=== PATIENT | female | born 1965 | race Caucasian/White ===

== ENCOUNTER 2020-01-30 14:58 | Outpatient (REF) | payer BC, SELFPAY ==
--- NOTE | 2020-01-30 15:08 | XR_ITS ---
EXAMINATION: XR CHEST CLINICAL INFORMATION: Pleurodynia COMPARISON: None TECHNIQUE: 2 views of the chest were obtained. FINDINGS: No significant abnormality is noted involving the heart, lungs, mediastinum, bony thorax or soft tissues. IMPRESSION: Unremarkable examination.
== END 2020-01-30 14:59 | disposition home or self-care (01) ==
LOC: HO.HMGCX 14:58
PROVIDERS: PCP Family Medicine; Visit Provider Family Medicine
DX: R07.81 Pleurodynia (principal)
CPT/HCPCS: 71046

== ENCOUNTER 2020-09-19 11:12 | Outpatient (REF) | payer BC, SELFPAY ==
[2020-09-19 14:10] LABS: MANUAL DIFF FLAG NO
[2020-09-19 14:17] LABS: Basophils Percent Auto 0.5 % (0-2); Eosinophils Absolute Auto 0.2 X10*3/uL (0.0-0.4); Eosinophils Percent Auto 3.4 % (0-4); Hematocrit 37.7 % (37-47); Hemoglobin 12.4 g/dl (12.0-16.0); Imm Gran Abs Auto 0.03 X10*3/uL (0.00-0.03); Imm Gran Pct Auto 0.5 % (0.0-0.4); Lymphocytes Absolute Auto 2.5 X10*3/uL (1.2-4.9); Mean Corpuscular HGB Conc 32.9 g/dl (31.0-35.0); Mean Corpuscular Hemoglobin 32.5 pg (27.0-33.0); Mean Platelet Volume 10.8 fL (9.4-12.3); Monocytes Absolute Auto 0.3 X10*3/uL (0.1-1.2); Monocytes Percent Auto 5.1 % (2-11); Neutrophils Absolute Auto 3.4 X10*3/uL (2.0-8.3); Neutrophils Percent Auto 52.5 % (45-73); Platelet Count 218 X10*3/uL (160-400); Red Blood Count 3.81 X10*6/uL (4.20-5.50); Red Cell Distribution Width 12.4 % (11.0-16.0); White Blood Count 6.5 X10*3/uL (4.8-10.8)
[2020-09-19 14:23] LABS: Glucose Urine UA NEG (NEG); Leukocyte Esterase Urine NEG (NEG); Nitrite Urine NEG (NEG); PH 7.5 (5.0-8.0); Specific Gravity - Urine 1.015 (1.005-1.025); Urine Blood NEG (NEG); Urine Ketones NEG (NEG); Urine Protein NEG (NEG-TRACE)
[2020-09-19 14:39] LABS: Appearance Urine CLEAR; Color Urine YELLOW
[2020-09-19 14:56] LABS: Alanine Aminotransferase 15 U/L (0-31); Alkaline Phosphatase 72 U/L (39-117); Anion Gap 9 (12-20); Aspartate Amino Transferase 15 U/L (5-31); Bilirubin Total 0.4 mg/dL (0.0-1.0); Blood Urea Nitrogen 16 mg/dL (9-16); Calcium 9.1 mg/dL (8.4-10.2); Carbon Dioxide 29 mmol/L (22-29); Chloride 108 mmol/L (96-108); Estimated Glomerular Filt Rate > 60; Glucose Random 95 mg/dL (60-115); Potassium 4.2 mmol/L (3.3-5.1); Sodium 142 mmol/L (135-145); Total Protein 6.4 g/dL (6.5-8.0)
[2020-09-19 14:57] LABS: TSH reflex Free T4 2.05 uIU/mL (0.32-4.0)
== END 2020-09-19 11:13 | disposition home or self-care (01) ==
LOC: HO.WFDLDS 11:12
PROVIDERS: PCP Family Medicine; Visit Provider Family Medicine
DX: Z00.00 Encounter for general adult medical examination without abnormal findings (principal); K52.9 Noninfective gastroenteritis and colitis, unspecified; R42 Dizziness and giddiness
CPT/HCPCS: 36415; 80053; 81003; 84443; 85025

== ENCOUNTER → 2020-09-30 13:22 | Outpatient (REF) | payer BC, SELFPAY ==
--- NOTE | 2020-09-30 13:45 | ECG_ITS ---
Hook-up date: 2020-09-30 13:45:00 Duration: 24:57:00 Test Indications: DIZZINESS AND GIDDINESS Medications: [id number] QRS complexes 8 Ventricular ectopics which represent <1 % of total QRS comp. 14 Supraventricular ectopics which represent <1 % of total QRS comp. * Paced QRS complexs which represent % of total QRS comp. VENTRICULAR ECTOPY 8 Isolated 0 Bigeminal Cycles 0 Couplets 0 Runs 0 Beats in Runs * Beats LONGEST at * BPM at :: -- * Beats FASTEST at * BPM at :: -- SUPRAVENTRICULAR ECTOPY 8 Isolated 1 Couplets 1 Runs 4 Beats in Runs 4 Beats LONGEST at 165 BPM at 14:47:16 2020-09-30 4 Beats FASTEST at 165 BPM at 14:47:16 2020-09-30 HEART RATES 52 MIN at 08:56:31 2020-10-01 74 AVG 123 MAX at 13:33:27 2020-10-01 LONGEST RR 1.2160 secs at 08:57:19 2020-10-01 S-T LEVELS Channel 1 - 128 mm at 13:45:00 2020-09-30 - 128 mm at 13:45:00 2020-09-30 Channel 2 - 128 mm at 13:45:00 2020-09-30 - 128 mm at 13:45:00 2020-09-30 Channel 3 - 128 mm at 03:30:41 -- - 128 mm at 03:30:41 Basic rhythm Normal sinus rhythm No long pause or profound bradycardia Rare ectopics No dangerous dysrhythm periods No diary submitted Referred By: Karl Falcon Overread By: KEN LILLY MD
== END ==
LOC: HO.CARD 13:22
PROVIDERS: PCP Family Medicine; Visit Provider Family Medicine
DX: R42 Dizziness and giddiness (principal); R00.0 Tachycardia, unspecified
CPT/HCPCS: 93225; 93226

== ENCOUNTER → 2020-10-28 13:57 | Outpatient (BNVA) | payer BC, SELFPAY | PROVIDERS: PCP Family Medicine; Referring Provider Family Medicine; Visit Provider Internal Medicine Cardiovascular Disease ==

== ENCOUNTER → 2020-11-04 07:52 | Outpatient (REF) | payer BC, SELFPAY ==
--- NOTE | 2020-11-04 07:58 | HM_ITS ---
The patient is a 55-year-old female. REASON FOR TEST: Palpitations. INTERPRETATION: The patient was hooked up to cardiac event monitor from 11/04/2020 to 12/04/2020 for a total period of 30 days. Baseline is of normal size rhythm. There were no arrhythmias noted. There were 2 patient activated events both correlated with sinus rhythm. CONCLUSION: Cardiac event monitor is remarkable. 1. Baseline normal sinus rhythm. 1. No significant arrhythmias. 2. No patient reported symptoms. Ahsan Chun MD NRS/MODL / [id number]
--- NOTE | 2020-11-04 07:58 | CA_ITS ---
Acquisition Time: 2020-11-04 08:10:55 Total Exercise Time: 00:06:00 Test Indications: Chest Pain Medications: BUPROPION CLONAZAPAM FLUOXETINE ONDANSTATRON ZOLPIDIEM Protocol: ANASTASIIA Max HR: 146 BPM 89% of Pred: 163 BPM Max BP: 146/084 mmHG Max Work Load: 7.0 METS Exercise stress test with exercise 6 min of Anastasiia protocol, with mild sob, no chest discomfort, with isolated PACs, with normotensive response to exercise, with nonspecific ST abnormality which is equivocal for ischemia. EKG tracings and report reviewed with Dr Chun. Will order a stress echo for further evaluation. Referred By: Ahsan Chun Overread By: KAYLA OZUNA
[2020-11-04 08:50] LABS: Cholesterol 190 mg/dL; HDL Cholesterol 55 mg/dL; LDL Cholesterol Calculated 107 mg/dl; Triglycerides 143 mg/dL
[2020-11-05 11:47] LABS: CRP High Sensitivity 3.6 mg/L
[2020-11-05 16:11] LABS: Follicle Stimulating Hormone 68.2 mIU/mL; Lutenizing Hormone 33.2 mIU/mL
[2020-11-08 11:31] LABS: Metanephrine, Free <25 pg/mL (<=57); Normetanephrines, Free 129 pg/mL (<=148); Total Metanephrine, Free 129 pg/mL (<=205)
== END ==
LOC: HO.CARD 07:52
PROVIDERS: Family Medicine; Visit Provider Internal Medicine Cardiovascular Disease
DX: R00.2 Palpitations (principal); M79.602 Pain in left arm; R23.2 Flushing; R00.0 Tachycardia, unspecified; R42 Dizziness and giddiness; R61 Generalized hyperhidrosis; I25.10 Atherosclerotic heart disease of native coronary artery without angina pectoris; E78.5 Hyperlipidemia, unspecified; Z82.49 Family history of ischemic heart disease and other diseases of the circulatory system
CPT/HCPCS: 36415; 80061; 82533; 83001; 83002; 83835; 86141; 93017; 93270

== ENCOUNTER → 2020-11-12 10:52 | Outpatient (REF) | payer BC, SELFPAY ==
--- NOTE | 2020-11-12 10:56 | CA_ITS ---
Acquisition Time: 2020-11-12 11:40:44 Total Exercise Time: 00:06:10 Test Indications: ABN ETT Medications: SEE CHART Protocol: ANASTASIIA Max HR: 166 BPM 101% of Pred: 163 BPM Max BP: 132/068 mmHG Max Work Load: 7.2 METS Exercise stress test with exercise 6 min 10 sec of Anastasiia protocol, with mild to moderate shortness of breath, no chest discomfort, with isolated PACs and PVCs, with normotensive response to exercise, with EKG changes meeting criteria for ischemia: horizontal ST depression inferiorly, V3-V6,ST elevation aVR. Echo images obtained by tech at rest and immediately post peak exercise. Definity contrast used. Test reviewed with Dr Menjivar. Referred By: Rafaela Serrato Overread By: RAFAELA SERRATO
== END ==
LOC: HO.CARD 10:52
PROVIDERS: Visit Provider Nurse Practitioner Family
DX: R94.39 Abnormal result of other cardiovascular function study (principal); Z82.49 Family history of ischemic heart disease and other diseases of the circulatory system
CPT/HCPCS: 93350; Q9957

== ENCOUNTER → 2020-12-09 09:24 | Outpatient (REF) | payer BC, SELFPAY ==
--- NOTE | 2020-12-09 09:27 | CA_ITS ---
Transthoracic Echocardiogram Patient (Last, First, Middle): Rosie Romero, Gender: Female Date of : 1965 Age: 55 Procedure Date: 12/09/2020 Procedure Type: Transthoracic Echocardiogram Location: OP Height: 154.94 cm Weight: 90.72 kg BSA: 1.89 m2 Heart Rate: bpm BP: 120 / 70 mmHg Business Applications Developer: CARA Referring MD: Ahsan Chun MD Symptoms: R00.2 - Palpitations Study Quality: Good ECG Rhythm: Sinus Conclusions: - The left ventricular systolic function is normal. The calculated ejection fraction is 61% by biplane method. - No obvious valvular pathology seen on this study. Findings Left Ventricle Normal left ventricular cavity size. There is normal left ventricular wall thickness. The left ventricular systolic function is normal. The calculated ejection fraction is 61% by biplane method. There is no evidence of regional wall motion abnormalities. Diastolic function is normal for age. Right Ventricle Normal right ventricular cavity size and systolic function. Atria Both atria are normal in size. Aortic Valve There is a normal trileaflet aortic valve. There is no aortic valve stenosis. There is no aortic valve regurgitation. Mitral Valve The mitral valve appears normal. There is no mitral valve regurgitation. There is no mitral valve stenosis. Pulmonic Valve The pulmonic valve is likely normal. Tricuspid Valve Normal tricuspid valve structure. There is trace tricuspid valve regurgitation. The pulmonary artery systolic pressure is normal. Great Vessels The aortic annulus, sinuses of valsalva, and asc aorta are normal in size. Venous The inferior vena cava is normal in size and collapses greater than 50% with inspiration. Pericardium/Pleural There is no evidence of pericardial effusion. Prior Study Comparison No prior study available for comparison. Recommendations, Care & Conclusions No obvious valvular pathology seen on this study. Measurements 2D Linear Measurements IVSd: 0.92 0.6-0.9/0.6-1.0 cm LVIDd: 4.90 3.9-5.3/4.2-5.9 cm LVIDd Index: 2.59 2.4-3.2/2.2-3.1 cm/m2 LVIDs: 3.16 2.0-3.6 cm LVPWd: 0.86 0.7-1.1 cm Ao Root: 3.70 2.1-3.5 cm LA Diam: 3.60 2.7-3.8/3.0-4.0 cm LAIDs Index: 1.90 1.5-2.3 cm/m2 LV Mass: 186.67 67-162/88-224 g LV Mass Index: 98.77 43-95/49-115 g/m2 LVOT Diam: 2.00 3.0+(-)1.3 cm 2D Systolic Function EF 4C: 58.50 >55% EF 2C: 63.00 >55% EF BiP: 61.30 >55% Mitral Valve MV Pk E: 0.51 MV PK A: 0.78 MV Decel Time: 221.00 E/A: 0.70 E'Lateral: 5.00 E'Medial: 5.11 E/E' Med: 9.90 E/E' Lat: 10.20 PHT: 65.00 MVA PHT: 3.38 Decel Dougherty: 2.30 Aortic Valve AoV Pk Jarett: 1.38 AoV Mn Jarett: 0.90 AoV VTI: 0.26 AoV Pk Grad: 8.00 Aov Mn Grad: 4.00 MERVIN Cont.VTI: 2.47 LVOT LVOT Pk Jarett: 0.91 LVOT Mn Jarett: 0.61 LVOT VTI: 0.20 LVOT Pk Grad: 3.00 LVOT Mn Grad: 2.00 LVOT Diam: 2.00 LVOT Area: 3.14 Diastolic Function MV Pk E: 0.51 MV Pk A: 0.78 E/A: 0.70 E'Medial: 5.11 E/E' Med: 9.90 E' Laterial: 5.00 E/E' Lat: 10.20 Right Ventricle TAPSE (mm): 1.75 TVS' Jarett: 12.10 Tricuspid Valve TR Pk Jarett: 1.44 TR Pk Grad: 8.00 RA Press: 3.00 RVSP: 11.00 Great Vessels Aorta Ao Root-2D: 3.70 2.0-3.7 cm Ao Asc: 3.20 2.1-3.4 cm Ao Arch: 2.60 Updated in Other Vendor System with Status of Final Aldair Menjivar MD electronically signed on 12/10/2020 8:52:01 AM with status of Final
== END ==
LOC: HO.CARD 09:24
PROVIDERS: Visit Provider Internal Medicine Cardiovascular Disease
DX: R00.2 Palpitations (principal)
CPT/HCPCS: 93306

== ENCOUNTER → 2020-12-24 12:42 | Outpatient (BNVA) | payer BC, SELFPAY | PROVIDERS: PCP Family Medicine; Referring Provider Family Medicine; Visit Provider Internal Medicine Cardiovascular Disease ==

== ENCOUNTER 2021-03-31 08:12 | Outpatient (REF) | payer BC, SELFPAY ==
[2021-03-31 09:16] LABS: Cholesterol 199 mg/dL; HDL Cholesterol 59 mg/dL; LDL Cholesterol Calculated 111 mg/dl; Triglycerides 145 mg/dL
[2021-04-02 13:36] LABS: CRP High Sensitivity 8.2 mg/L
== END 2021-03-31 08:13 | disposition home or self-care (01) ==
LOC: HO.LAB 08:12
PROVIDERS: PCP Family Medicine; Visit Provider Internal Medicine Cardiovascular Disease
DX: R79.82 Elevated C-reactive protein (CRP) (principal); E78.5 Hyperlipidemia, unspecified; Z82.49 Family history of ischemic heart disease and other diseases of the circulatory system
CPT/HCPCS: 36415; 80061; 86141

== ENCOUNTER 2021-05-26 11:31 | Outpatient (REF) | payer BC, SELFPAY ==
--- NOTE | ~2021-05-26 | MM_ITS ---
EXAMINATION: MM SCREENING DIGITAL BREAST TOMOSYNTHESIS, BILATERAL CLINICAL INFORMATION: Screening. Asymptomatic. The lifetime risk of breast cancer based on the Tyrer-Cuzick Model is 5%. COMPARISON: Mammography: 03/04/2016, 02/22/2016, 01/08/2015 TECHNIQUE: Digital breast tomosynthesis is performed in both the craniocaudal and mediolateral oblique views along with computer-aided detection (CAD). Synthesized 2D images are generated from the tomosynthesis. Additional left CC view is provided. FINDINGS: The breasts are heterogeneously dense, which may obscure small masses (ACR BI-RADS breast composition Category c). Breast parenchymal pattern is similar to prior studies. There is no interval mass or architectural abnormality or developing density. The axilla and skin contours are unremarkable. There are some scattered benign calcifications seen in both breasts. The left breast has interval new loosely grouped benign-appearing coarse calcifications mid upper outer quadrant. Patient will be recalled for additional magnification views to fully characterize. MM/MM tomosynthesis screening BI IMPRESSION: 1. Left: New loosely grouped probable benign coarse calcifications mid upper outer quadrant. 2. Right: No mammographic evidence of malignancy. ASSESSMENT: BI-RADS 0: Incomplete - Need Additional Imaging Evaluation RECOMMENDATION: 1. Additional views of the left breast (magnification CC, magnification ML). 2. Radiology department staff will contact the patient for additional imaging. This patient's information was entered into a reminder system with a target due date for their next mammogram.
== END 2021-05-26 11:32 | disposition home or self-care (01) ==
LOC: HO.MAMMO 11:31
PROVIDERS: PCP Family Medicine; Visit Provider Family Medicine
DX: Z12.31 Encounter for screening mammogram for malignant neoplasm of breast (principal)
CPT/HCPCS: 77063; 77067

== ENCOUNTER 2021-06-17 13:19 | Outpatient (REF) | payer BC, SELFPAY ==
--- NOTE | ~2021-06-17 | MM_ITS ---
EXAMINATION: MM DIAGNOSTIC DIGITAL MAMMOGRAPHY, LEFT CLINICAL INFORMATION: Recall from screening for new loosely grouped calcifications left breast upper outer quadrant when compared with the prior mammography from 2016. COMPARISON: Mammography: 05/26/2021, 03/04/2016 TECHNIQUE: Digital mammography is performed in the following views: Magnification CC, magnification ML. FINDINGS: The breasts are heterogeneously dense, which may obscure small masses (ACR BI-RADS breast composition Category c). The additional magnification views confirm loosely grouped coarse calcifications mid upper outer left breast, new from prior mammography 2016. The calcifications are probably benign and will be reassessed again in 6 months to include magnification views. Results are discussed with the patient at time of visit. Patient confirms there are no additional prior mammograms between 2015 and 2021. MM/MM added views LT IMPRESSION: Probable benign calcifications mid upper outer left breast, new from prior mammography 2016. ASSESSMENT: BI-RADS 3: Probably Benign RECOMMENDATION: Diagnostic left mammography in 6 months. This patient's information was entered into a reminder system with a target due date for their next mammogram.
== END 2021-06-17 13:20 | disposition home or self-care (01) ==
LOC: HO.MAMMO 13:19
PROVIDERS: PCP Family Medicine; Visit Provider Family Medicine
DX: R92.1 Mammographic calcification found on diagnostic imaging of breast (principal)
CPT/HCPCS: 77065

== ENCOUNTER 2021-12-30 12:55 | Outpatient (REF) | payer BC, SELFPAY ==
--- NOTE | ~2021-12-30 | MM_ITS ---
EXAMINATION: MM DIAGNOSTIC DIGITAL BREAST TOMOSYNTHESIS, LEFT CLINICAL INFORMATION: Short interval six-month follow-up probable benign calcifications mid upper outer left breast. The lifetime risk of breast cancer based on the Tyrer-Cuzick Model is 5%. COMPARISON: Mammography: 06/17/2021, 05/26/2021 (BI-RADS 0), 03/04/2016, 02/22/2016 TECHNIQUE: Digital breast tomosynthesis is performed in both the craniocaudal and mediolateral oblique views along with computer-aided detection (CAD). Synthesized 2D images are generated from the tomosynthesis. Additional magnification left CC and magnification left ML views are obtained. FINDINGS: The breasts are heterogeneously dense, which may obscure small masses (ACR BI-RADS breast composition Category c). Parenchymal pattern is similar to prior studies and there is no developing density or interval mass or architectural abnormality. Left breast calcifications for follow-up are relatively coarse and similar to prior diagnostic exam, possibly fibroadenomatous change. The calcifications will be reassessed again at time of annual bilateral mammography, due in 6 months. Results are provided to the patient at time of visit by the technologist. MM/MM tomosynthesis diagnostic LT IMPRESSION: -Left breast calcifications similar to prior diagnostic exam, possibly fibroadenomatous change. ASSESSMENT: BI-RADS 3: Probably Benign RECOMMENDATION: Diagnostic left mammography at time of annual bilateral exam, due in 6 months. This patient's information was entered into a reminder system with a target due date for their next mammogram.
== END 2021-12-30 12:56 | disposition home or self-care (01) ==
LOC: HO.MAMMO 12:55
PROVIDERS: PCP Family Medicine; Visit Provider Family Medicine
DX: R92.8 Other abnormal and inconclusive findings on diagnostic imaging of breast (principal)
CPT/HCPCS: 77061; 77065

== ENCOUNTER 2022-04-17 09:46 | Outpatient (REF) | payer BC, SELFPAY ==
--- NOTE | ~2022-04-17 | XR_ITS ---
EXAMINATION: XR HAND, RIGHT CLINICAL INFORMATION: Pain. COMPARISON: Radiographs dated 08/07/2015. TECHNIQUE: PA, lateral, and oblique views of the right hand. FINDINGS: Bony alignment is normal. There is a mild ulnar positive variance. There is mild bony demineralization. There is minimal peripheral osteophyte formation of the interphalangeal joint of the thumb. No abnormal bone erosion is seen. The proximal and distal carpal rows are intact. The soft tissue planes are unremarkable, without swelling, gas or foreign body. XR/XR hand LT 2V IMPRESSION: 1. No fracture or dislocation is seen. 2. There is minimal osteoarthritic change of the interphalangeal joint of the right thumb. EXAMINATION: XR HAND, LEFT CLINICAL INFORMATION: Pain. COMPARISON: None TECHNIQUE: PA, lateral, and oblique views of the left hand. FINDINGS: Bony alignment is normal. There is a mild ulnar positive variance. There is mild bony demineralization. No unusual degenerative change is seen. There is no focal bone erosion. No fracture or dislocation is seen. The soft tissue planes are unremarkable, swelling, gas or foreign body. IMPRESSION: Unremarkable left hand.
--- NOTE | ~2022-04-17 | XR_ITS ---
EXAMINATION: XR HAND, RIGHT CLINICAL INFORMATION: Pain. COMPARISON: Radiographs dated 08/07/2015. TECHNIQUE: PA, lateral, and oblique views of the right hand. FINDINGS: Bony alignment is normal. There is a mild ulnar positive variance. There is mild bony demineralization. There is minimal peripheral osteophyte formation of the interphalangeal joint of the thumb. No abnormal bone erosion is seen. The proximal and distal carpal rows are intact. The soft tissue planes are unremarkable, without swelling, gas or foreign body. XR/XR hand RT 2V IMPRESSION: 1. No fracture or dislocation is seen. 2. There is minimal osteoarthritic change of the interphalangeal joint of the right thumb. EXAMINATION: XR HAND, LEFT CLINICAL INFORMATION: Pain. COMPARISON: None TECHNIQUE: PA, lateral, and oblique views of the left hand. FINDINGS: Bony alignment is normal. There is a mild ulnar positive variance. There is mild bony demineralization. No unusual degenerative change is seen. There is no focal bone erosion. No fracture or dislocation is seen. The soft tissue planes are unremarkable, swelling, gas or foreign body. IMPRESSION: Unremarkable left hand.
[2022-04-17 10:34] LABS: Appearance Urine Clear; Color Urine Yellow; Glucose Urine UA Negative (Negative); Leukocyte Esterase Urine Negative (Negative); Nitrite Urine Negative (Negative); PH 5.5 (5.0-9.0); UMIC TRIGGER UA YES; Urine Blood Small (1+) (Negative); Urine Ketones Negative (Negative); Urine Protein Negative (Neg-Trace)
[2022-04-17 10:44] LABS: Bacteria Urine None Seen (None Seen); Hyaline Casts Urine 0-2 /LPF (0-2); RBC Urine 0-2 /HPF (0-2); WBC Urine 0-5 /HPF (0-5)
[2022-04-17 11:04] LABS: Alanine Aminotransferase 9 U/L (0-31); Albumin Level 4.4 g/dL (3.5-5.0); Alkaline Phosphatase 75 U/L (39-117); Anion Gap 12 (12-20); Aspartate Amino Transferase 13 U/L (5-31); Bilirubin Total 0.5 mg/dL (0.0-1.0); Blood Urea Nitrogen 15 mg/dL (9-16); Calcium 9.7 mg/dL (8.4-10.2); Carbon Dioxide 29 mmol/L (22-29); Chloride 106 mmol/L (96-108); Cholesterol 240 mg/dL; Estimated Glomerular Filt Rate > 60; Glucose Fasting 92 mg/dL (60-99); HDL Cholesterol 74 mg/dL; LDL Cholesterol Calculated 136 mg/dl; Potassium 4.5 mmol/L (3.3-5.1); Sodium 142 mmol/L (135-145); Total Protein 7.1 g/dL (6.5-8.0); Triglycerides 152 mg/dL
[2022-04-17 11:56] LABS: Creatinine Urine 138.95 mg/dL; Microalbum/Creatinine Ratio Ur 4.3 ug/mg cr
[2022-04-17 13:23] LABS: TSH reflex Free T4 2.21 uIU/mL (0.32-4.0)
== END 2022-04-17 09:47 | disposition home or self-care (01) ==
LOC: HO.LAB 09:46
PROVIDERS: PCP Family Medicine; Visit Provider Family Medicine
DX: Z00.00 Encounter for general adult medical examination without abnormal findings (principal); I10 Essential (primary) hypertension; M79.641 Pain in right hand; M79.642 Pain in left hand
CPT/HCPCS: 36415; 73120; 80053; 80061; 81001; 82043; 84443

== ENCOUNTER 2022-07-07 12:56 | Outpatient (REF) | payer BC, SELFPAY ==
--- NOTE | ~2022-07-07 | MM_ITS ---
EXAMINATION: MM DIAGNOSTIC DIGITAL BREAST TOMOSYNTHESIS, BILATERAL CLINICAL INFORMATION: Due for yearly. Also follow-up probable benign calcifications mid upper outer left breast, possibly fibroadenomatous changes. The lifetime risk of breast cancer based on the Tyrer-Cuzick Model is 8%. COMPARISON: Mammography: 12/30/2021, 06/17/2021, 05/26/2021 (BI-RADS 0), 03/04/2016, 02/21/2015 TECHNIQUE: Digital breast tomosynthesis is performed in both the craniocaudal and mediolateral oblique views along with computer-aided detection (CAD). Synthesized 2D images are generated from the tomosynthesis. FINDINGS: The breasts are heterogeneously dense, which may obscure small masses (ACR BI-RADS breast composition Category c). Parenchymal pattern is similar to prior studies and there is no significant mass or developing density, or architectural abnormality. Parenchymal asymmetry mid central left breast on CC view is chronic finding, unchanged from 2015. Right breast shows no skin abnormal calcifications. The bilateral axilla and skin contours are unremarkable. Left breast calcifications for follow-up are benign-appearing, relatively coarse, suspect fibroadenomatous change. They will be reassessed again at next bilateral annual mammography in 12 months. Results are provided to the patient at time of visit by the technologist. MM/MM tomosynthesis diagnostic BI IMPRESSION: -No mammographic evidence of malignancy. -No significant changes probable benign calcifications mid upper outer left breast, suspect fibroadenomatous change. ASSESSMENT: BI-RADS 3: Probably Benign RECOMMENDATION: Diagnostic mammography at time of next annual exam, due in 12 months. This patient's information was entered into a reminder system with a target due date for their next mammogram.
== END 2022-07-07 12:57 | disposition home or self-care (01) ==
LOC: HO.MAMMO 12:56
PROVIDERS: PCP Family Medicine; Visit Provider Family Medicine
DX: R92.8 Other abnormal and inconclusive findings on diagnostic imaging of breast (principal); R92.1 Mammographic calcification found on diagnostic imaging of breast
CPT/HCPCS: 77062; 77066

== ENCOUNTER 2022-08-28 11:41 | Outpatient (REF) | payer BC, SELFPAY ==
[2022-08-28 14:23] LABS: Erythrocyte Sedimentation Rate 16 MM/HR (0-20)
[2022-08-28 14:26] LABS: Anion Gap 8 (12-20); Blood Urea Nitrogen 18 mg/dL (9-16); Calcium 9.4 mg/dL (8.4-10.2); Carbon Dioxide 30 mmol/L (22-29); Chloride 107 mmol/L (96-108); Estimated Glomerular Filt Rate > 60; Glucose Random 80 mg/dL (60-115); Rheumatoid Factor < 13.0 IU/mL (<15.0); Sodium 141 mmol/L (135-145)
[2022-08-31 15:59] LABS: CRP High Sensitivity 4.3 mg/L
[2022-09-03 12:13] LABS: Cyclic Citrullinated Peptide <16 UNITS
[2022-09-04 14:58] LABS: Anti Nuclear Antibody Screen POSITIVE (NEGATIVE)
== END 2022-08-28 11:42 | disposition home or self-care (01) ==
LOC: HO.WFDLDS 11:41
PROVIDERS: Visit Provider Family Medicine
DX: Z00.00 Encounter for general adult medical examination without abnormal findings (principal); M79.671 Pain in right foot; M25.569 Pain in unspecified knee
CPT/HCPCS: 36415; 80048; 84550; 85652; 86038; 86039; 86141; 86200; 86431

== ENCOUNTER 2022-12-31 09:29 | Outpatient (AMB) | payer BC, SELFPAY ==
--- NOTE | 2022-12-31 09:33 | A.OFFPC_ITS ---
Vital Signs 12/31/22 09:35 Height 5 ft 1 in Weight 196 lb 8 oz BMI 37.1 BP 104/66 Blood Pressure Location Lt brachial Position Sitting Respiration 13 Pulse 73 Pulse Source Pulse Oximeter Temp 97.8 F Temp Source Temporal Artery Scan Pulse Oximetry (%) 96 Oxygen Delivery Method Room Air Intake Visit Reasons: lump on collarbone near throat Intake Note: Patient reports finding a lump on the right side of her neck/collarbone area 1 week ago. Patient reports the lump is not painful however the right side of the neck is painful. Patient also states she has rib pain on the right side. Patient reports a nonproductive cough x2 weeks. Supervisor Shipping Required: No Allergies acetaminophen [From PERCOCET] Allergy (Mild, Verified 12/31/22 09:41) NAUSEA & VOMITING oxycodone [OXYCODONE] Allergy (Mild, Verified 12/31/22 09:41) NAUSEA & VOMITING Most paonkillers Allergy (Unknown, Uncoded 09/28/22 13:30) VOmiting OxyContin Allergy (Unknown, Uncoded 09/28/22 13:30) vomit Tobacco use date assessed: 09/28/22 Dental Screening Dental Screen Date: 12/31/22 Did you have a dental visit in the last 12 months?: Yes Did you have a dental problem in the last 6 months where you did not have access to dental care?: No Was dental information given to patient?: Patient has dentist HPI lump on collarbone near throat HPI Details 57 y/o female presents today with compla ints of a lump on her collarbone. Patient reports finding a lump on the right side of her neck/collarbone area 1 week ago. Patient reports the lump is not painful however the right side of the neck is painful. Patient also states she has rib pain on the right side. Patient reports a nonproductive cough x2 weeks. She denies any fevers/chills/sweats. Pt reports rib pain have been from her leaning against a tub. [facility] Medical History Family history of premature coronary artery disease Surgical History History of cholecystectomy History of partial hysterectomy Family History (Updated 12/31/22 @ 09:43 by Kerline Eli) Father No problems noted. Mother No problems noted. Brother CVD (cardiovascular disease) Daughter Grand mal seizure Social History Housing: House Alcohol intake: current Alcohol intake frequency: holidays/special occasions only Patient Tobacco Use Status: Never used Tobacco e-Cigarette/Vaping Use: Never Used service: No Current occupational status: employed Current occupational exposures/hazards: No Cognitive needs: No Hearing needs: No Vision needs: No Questionnaire Thrive Questionnaire Date Thrive assessed: 12/24/20 RICKY-7 AMB Questionnaire RICKY-7 Date RICKY - 7 assessed: 04/14/22 Source: Developed by Drs. Allen Pham, Ny Drake, Mitul Heredia and colleagues, with an educational farheen from [employer]. Review of Systems Const Denies chills, Denies fatigue, Denies fever(s), Denies headache(s) and Denies weakness ENT Denies dizziness and Denies headache(s) Card Denies dyspnea Resp Reports cough, Denies dyspnea and Denies wheezing Musc Details: Rib pain Denies numbness and Denies tingling Neuro Denies dizziness, Denies headache(s), Denies numbness, Denies tingling and D enies weakness Psych Denies anxiety and Denies depression Endo Denies fatigue Aller/Immun Denies wheezing Physical exam (Primary Care) Vital Signs: Last Vital Signs Temp 97.8 F 12/31/22 09:35 Pulse 73 12/31/22 09:35 Resp 13 12/31/22 09:35 BP 104/66 12/31/22 09:35 Pulse Ox 96 12/31/22 09:35 Oxygen Delivery Method Room Air 12/31/22 09:35 BMI result Body Mass Index 37.1 Tobacco/Smoking Status: Tobacco use Status Tobacco use date assessed 09/28/22 12/31/22 09:35 Patient Tobacco Use Status Never used Tobacco 12/31/22 09:35 e-Cigarette/Vaping Use Never Used 12/31/22 09:35 Thrive Assessment: Date of Thrive Assessment Date Thrive assessed 12/24/20 12/31/22 09:35 Const General: well developed; No acute distress Nutritional Appearance: well nourished and obese Orientation/consciousness: patient oriented x3 HENMT Head: Yes normocephalic and Yes atraumatic Eyes General: appearance normal, both eyes and all related structures Pupils: Equal, round and reactive pupils present EOM: EOMs intact bilaterally Resp Effort & Inspection: normal respiratory effort Neuro General: patient oriented x3 and gait normal Cranial nerves: Yes Equal, round and reactive pupils present Psych Affect: normal affect Assessment and Plan Assessment & Plan (1) Neck mass: Code(s): R22.1 - Localized swelling, mass and lump, neck Plan: Mass at base of neck/right SC joint No fevers or sweating I suspect this may be a sternoclavicular joint inflammation and patient has polyarthralgias and is already referred to Rheumatology. Ruling out other causes of mass including tumor though I think this is less likely Check ultrasound neck Check chest x-ray Check CBC Will follow-up after above studies (2) Rib pain: Code(s): R07.81 - Pleurodynia Plan: Rib pain and patient was leaning against a tub Pain is at costochondral margins Possible costochondritis Checking chest x-ray (3) Cough: Code(s): R05.9 - Cough, unspecified Plan: Dry cough. Lungs are clear. Probable incidental cough and unrelated to the above but checking chest x-ray Orders: Orders US soft tiss head and/or neck Today R22.1 - Localized swelling, mass and lump, neck XR chest 2V Today R05.9 - Cough, unspecified, R07.81 - Pleurodynia Complete Blood Count Auto Diff Today R22.1 - Localized swelling, mass and lump, neck Erythrocyte Sedimentation Rate Today R07.81 - Pleurodynia CRP High Sensitivity Today R07.81 - Pleurodynia Coding Level of Care Code Est Pt Level 4 (75138) Diagnoses Neck mass R22.1 Rib pain R07.81 Cough R05.9
[2022-12-31 09:35] VITALS: BP 104/66; PULSE 73; RESP 13; TEMP 36.6; O2SAT 96; BMI 37.1
== END 2022-12-31 10:23 | disposition home or self-care (01) ==
PROVIDERS: PCP Family Medicine; Visit Provider Family Medicine
DX: R22.1 Localized swelling, mass and lump, neck (principal); R07.81 Pleurodynia; R05.9 Cough, unspecified
CPT/HCPCS: 99214

== ENCOUNTER 2022-12-31 10:28 | Outpatient (REF) | payer BC, SELFPAY ==
[2022-12-31 14:17] LABS: MANUAL DIFF FLAG NO
[2022-12-31 14:22] LABS: Basophils Absolute Auto 0.1 X10*3/uL (0.0-0.2); Basophils Percent Auto 0.8 % (0-2); Eosinophils Absolute Auto 0.2 X10*3/uL (0.0-0.4); Eosinophils Percent Auto 2.4 % (0-4); Hematocrit 39.2 % (37.0-47.0); Hemoglobin 12.8 g/dl (12.0-16.0); Imm Gran Abs Auto 0.02 X10*3/uL (0.00-0.03); Imm Gran Pct Auto 0.3 % (0.0-0.4); Lymphocytes Absolute Auto 2.2 X10*3/uL (1.2-4.9); Lymphocytes Percent Auto 35.2 % (20-40); Mean Corpuscular HGB Conc 32.7 g/dl (31.0-35.0); Mean Corpuscular Hemoglobin 33.2 pg (27.0-33.0); Mean Corpuscular Volume 101.6 fL (80.0-98.0); Mean Platelet Volume 11.2 fL (9.4-12.3); Monocytes Absolute Auto 0.4 X10*3/uL (0.1-1.2); Monocytes Percent Auto 6.2 % (2-11); Neutrophils Absolute Auto 3.4 x10*3/uL (2.0-8.3); Neutrophils Percent Auto 55.1 % (45-73); Platelet Count 255 X10*3/uL (160-400); Red Blood Count 3.86 X10*6/uL (4.20-5.50); Red Cell Distribution Width 12.3 % (11.0-16.0); White Blood Count 6.1 X10*3/uL (4.8-10.8)
[2022-12-31 15:06] LABS: Erythrocyte Sedimentation Rate 12 MM/HR (0-20)
== END 2022-12-31 10:29 | disposition home or self-care (01) ==
LOC: HO.WFDLDS 10:28
PROVIDERS: Visit Provider Family Medicine
DX: R07.81 Pleurodynia (principal); R22.1 Localized swelling, mass and lump, neck
CPT/HCPCS: 36415; 85025; 85652; 86141

== ENCOUNTER 2023-01-01 12:56 | Outpatient (REF) | payer BC, SELFPAY ==
--- NOTE | ~2023-01-01 | XR_ITS ---
EXAMINATION: XR CHEST CLINICAL INFORMATION: Pleurodynia COMPARISON: Previous chest x-ray most recent January 2020 TECHNIQUE: 2 views of the chest were obtained. FINDINGS: The cardiac and mediastinal contours are stable. The lungs are clear. No pleural effusion or pneumothorax. There are degenerative changes of the spine. XR/XR chest 2V IMPRESSION: No evidence for acute disease in the chest.
== END 2023-01-01 12:57 | disposition home or self-care (01) ==
LOC: HO.XRAY 12:56
PROVIDERS: PCP Family Medicine; Visit Provider Family Medicine
DX: R07.81 Pleurodynia (principal); R05.9 Cough, unspecified
CPT/HCPCS: 71046

== ENCOUNTER 2023-01-05 08:34 | Outpatient (AMB) | payer BC, SELFPAY ==
--- NOTE | 2023-01-05 08:40 | MHC.OFFVIS ---
Intake Vital Signs 01/05/23 08:42 Height 5 ft 1 in Weight 200 lb 6.403 oz BMI 37.9 BP 118/76 Blood Pressure Location Lt brachial Position Sitting Pulse 70 Pulse Source Pulse Oximeter Temp 97.9 F Temp Source Skin Pulse Oximetry (%) 98 Oxygen Delivery Method Room Air Intake Visit Reasons: Joint Pain/elev crp Intake Note: New patient here for joint pain and elevated CRP. c/o right anterior neck lump, PCP thinks its an inflammed joint Director Of Radio Services Required: No Accompanied by: Self / Same As Patient Allergies acetaminophen [From PERCOCET] Allergy (Mild, Verified 01/05/23 08:41) NAUSEA & VOMITING oxycodone [OXYCODONE] Allergy (Mild, Verified 01/05/23 08:41) NAUSEA & VOMITING Most paonkillers Allergy (Unknown, Uncoded 01/05/23 08:41) VOmiting OxyContin Allergy (Unknown, Uncoded 01/05/23 08:41) vomit Medication List - Last Reconciled 01/05/23 by Abdi Spears MD bupropion HCl 150 mg PO BEDTIME clonazepam 2 mg PO BID PRN diclofenac sodium 1% 2 grams topical QID 30 days meloxicam 15 mg PO DAILY 30 days ondansetron 8 mg PO Q8H PRN 5 days zolpidem 10 mg PO BEDTIME PRN HPI HPI Comments History of Present Illness Details The patient presents for evaluation of joint pains and a positive TEJINDER. Areas of pain include the thumbs, left knee, right rib, and left hip. For about 6 months she has been getting pain at the base of the thumbs, more on the left side. This seems to come on with more physical activity. There is no swelling noted. She has not had any history of injury to the hands. For about the same on a time she gets intermittent pain in the left lateral knee. This is sometimes accompanied by left lateral hip pain. The hip is more bothersome to her. 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 The right costal margin has been painful recently particularly with pressure over the area. She thinks it might have developed when she was bathing as 7-month-old grandchild in the bathtub. No bruising or redness in the rib area has been noted. For months she has noted some enlargement at the proximal end of the right clavicle. The PCP apparently did a chest x-ray and is scheduled ultrasound to look into this. She does take [id number] ibuprofen for symptoms, 1 or 2 tabs every few days if needed. She also has meloxicam but does not usually take that. [facility] Medical History Family history of premature coronary artery disease Surgical History History of cholecystectomy History of partial hysterectomy Family History Father No problems noted. Mother No problems noted. Brother CVD (cardiovascular disease) Daughter Grand mal seizure Family/Other Multiple sclerosis Social History (Updated 01/05/23 @ 08:47 by SAMANTHA Shaw) Household Members: None Housing: House Alcohol intake: current Alcohol intake frequency: holidays/special occasions only Patient Tobacco Use Status: Never used Tobacco e-Cigarette/Vaping Use: Never Used service: No Current occupational status: employed Current occupation: Nurse Current occupational exposures/hazards: No Cognitive needs: No Hearing needs: No Vision needs: No Review of Systems Const Details: Some weight loss has been occurring. She does not really try to lose weight. She says she can not taste very well and smell is also severely impaired. Negative for appetite change, fever, chills, malaise and fatigue Eyes Details: Negative for vision change, dry eyes,headaches and dizziness ENT Details: She says her smell is impaired. Some time she smells things that are not there. There is also some oral dryness. This has been going on for about a year and half. She thinks it might have been related to COVID or her COVID vaccinations. Negative for hearing change, tinnitus, oral ulcer, nose bleeds . Card Details: Right subcostal pain was as noted above. Negative palpitations, edema and syncope Resp Details: Negative for SOB, cough and wheezing GI Details: Negative indigestion/heartburn, nausea, abdominal pain, bowel changes, diarrhea, constipation and bloody stool. Details: Negative for dysuria, hematuria, nocturia, decreased force/flow and genital discharge Skin/Breast Details: In the past she has been told she has some patchy hair loss. She can not really localize the areas today. Negative for itching, rash, hives, Raynaud's symptoms, sun sensitivity, and skin cancer Neuro Details: Negative for epilepsy, palsy, stroke, changes in speech, tingling and weakness Psych Details: Negative for anxiety, depression and stress Endo Details: Negative for polyuria and polydypsia Akshat/Lymph Details: Negative for excessive bruising or bleeding. Physical Exam Vital Signs: Last Vital Signs Temp 97.9 F 01/05/23 08:42 Pulse 70 01/05/23 08:42 BP 118/76 01/05/23 08:42 Pulse Ox 98 01/05/23 08:42 Oxygen Delivery Method Room Air 01/05/23 08:42 BMI result Body Mass Index 37.9 APPEARANCE: Patient in no acute distress EYES no redness, pupils equal and reactive to light, eyelids normal EARS: External ear normal, canal clear and tympanic membrane normal. NOSE/SINUS: Airflow through both nares, no nasal discharge, no bleeding THROAT: Oral mucosa moist, no ulcerations NECK: No thyromegaly or masses, no adenopathy, trachea midline. HEART: Regulrar rhythm, S1-S2 heard, no murmurs, rubs or gallops. LUNG: Clear to percussion and auscultation ABD: Normal bowel sounds, no organomegaly, masses or tenderness. EXTREMITIES: No edema, no calf tenderness, normal peripheral pulses. NEURO: Oriented and alert x3. No focal weakness. Reflexes symmetric. Gait normal. SKIN: No inflammatory or neoplastic lesions. Normal color and turgor JOINT EXAM:.?? Cervical Spine:.? Full range of motion without pain; no tenderness. Thoracic Spine:.? No scoliosis.? No tenderness on palpation. Lumbar Spine:.? Alignment normal.? Full range of motion without pain, no tenderness. Chest Wall: There is some firm, bony enlargement at the right sternoclavicular joint. There is no surrounding redness and there is no tenderness, soft tissue swelling, increased warmth or erythema. She also has some tenderness at the right costal margin just inferior to the right breast. Hands: There is mild bony enlargement at the base of the thumbs bilaterally. The left 1st CMC joint is a bit more tender than the 1 on the right. No redness or soft tissue swelling. Otherwise there is no other areas of pain or tenderness. There is no thenar atrophy or sensory loss. Wrists:.? Normal pain-free range of motion without tenderness, swelling, increased warmth or erythema. Elbows:. Normal pain-free range of motion without tenderness, swelling, increased warmth or erythema. Shoulders:.?? Full range of motion without pain. No tenderness, weakness, swelling, increased warmth or erythema. Hips:.? Full range of motion without pain. Hip bursa:.? mild left trochanteric tenderness. Knees: Left: Normal pain-free range of motion with minimal patellofemoral crepitus. There is some slight medial tenderness but no redness or effusion. Right:.?? Normal pain-free range of motion without tenderness, swelling, increased warmth or erythema.? There is no effusion or crepitation Ankles:.? Normal pain-free range of motion without tenderness, swelling, increased warmth or erythema. Feet:.? Normal pain-free range of motion with mild bony enlargement at the 5th MTP joints consistent with bunion adds. Those areas are not tender. Elsewhere there is no tenderness, swelling, increased warmth or erythema. Tender points:.? No tenderness to digital palpation at the occiput, trapezius, second rib, lateral epicondyle, knees, greater trochanter and gluteal area bilaterally. ? Results Reviewed Results Reviewed: Laboratory Tests 08/28/22 12/31/22 11:45 10:31 WBC 6.1 Hgb 12.8 ESR 12 Rheumatoid Factor < 13.0 Cycl Citrul Peptide IgG <16 TEJINDER Titer 1:320 H Laboratory Tests 08/28/22 12/31/22 11:45 10:31 C-React Prot High Sens 4.3 [address] [address] XRay Report Signed Patient: Rosie Romero #: [id number] : 1965 Acct:[id number] Age/Sex: 56 / F Date: 04/17/[address]: Karl Falcon MD Ordering Physician: Karl Falcon MD Date of Service: 04/17/22 Procedure(s): XR hand LT 2V Accession Number(s): [id number] cc: Karl Falcon MD~ EXAMINATION: XR HAND, RIGHT CLINICAL INFORMATION: Pain. COMPARISON: Radiographs dated 08/07/2015. TECHNIQUE: PA, lateral, and oblique views of the right hand. FINDINGS: Bony alignment is normal. There is a mild ulnar positive variance. There is mild bony demineralization. There is minimal peripheral osteophyte formation of the interphalangeal joint of the thumb. No abnormal bone erosion is seen. The proximal and distal carpal rows are intact. The soft tissue planes are unremarkable, without swelling, gas or foreign body. XR/XR hand LT 2V IMPRESSION: 1. No fracture or dislocation is seen. 2. There is minimal osteoarthritic change of the interphalangeal joint of the right thumb. EXAMINATION: XR HAND, LEFT CLINICAL INFORMATION: Pain. COMPARISON: None TECHNIQUE: PA, lateral, and oblique views of the left hand. FINDINGS: Bony alignment is normal. There is a mild ulnar positive variance. There is mild bony demineralization. No unusual degenerative change is seen. There is no focal bone erosion. No fracture or dislocation is seen. The soft tissue planes are unremarkable, swelling, gas or foreign body. IMPRESSION: Unremarkable left hand. Dictated By: David Wu MD [address] [address] XRay Report Signed Patient: Rosie Romero MR#: [id number] : 1965 Acct:[id number] Age/Sex: 57 / F Date: 01/01/[address]: Karl Falcon MD Ordering Physician: Karl Falcon MD Date of Service: 01/01/23 Procedure(s): XR chest 2V Accession Number(s): [id number] cc: Karl Falcon MD~ EXAMINATION: XR CHEST CLINICAL INFORMATION: Pleurodynia COMPARISON: Previous chest x-ray most recent January 2020 TECHNIQUE: 2 views of the chest were obtained. FINDINGS: The cardiac and mediastinal contours are stable. The lungs are clear. No pleural effusion or pneumothorax. There are degenerative changes of the spine. XR/XR chest 2V IMPRESSION: No evidence for acute disease in the chest. Dictated By: Stephany Sparrow MD Signed By: <Electronically signed by Stephany Sparrow MD in OV> 01/04/23 1436 DD/ 1315 Assessment & Plan Assessment & Plan (1) Anosmia: Code(s): R43.0 - Anosmia (2) Rib pain on right side: Code(s): R07.81 - Pleurodynia (3) TEJINDER positive: Code(s): R76.8 - Other specified abnormal immunological findings in serum (4) Trochanteric bursitis of left hip: Code(s): M70.62 - Trochanteric bursitis, left hip (5) Osteoarthritis of hands, bilateral: Code(s): M19.041 - Primary osteoarthritis, right hand; M19.042 - Primary osteoarthritis, left hand Qualifiers: Osteoarthritis type: primary Qualified Code(s): M19.041 - Primary osteoarthritis, right hand; M19.042 - Primary osteoarthritis, left hand Plan The hand pain is consistent with some CMC joint osteoarthritis. That really does not show a too much on her hand films but I think it is present. She does not have any underlying inflammatory changes evident on exam of the hands. The sternoclavicular joint is enlarged but not tender. I suspect this is from old clavicular injury. We will see if the ultrasound confirms that is joint enlargement rather than any soft tissue swelling such as a goiter or lymph node. She does not really have any symptoms to suggest an active lupus picture. She does have some tenderness in the left hip region consistent with some bursitis and some tenderness in the left knee without inflammatory findings suggesting of osteoarthritis. We will check some other labs to look into the question of lupus but I do not think they are going to be positive. I will get back to her with results of the studies. Efforts at weight loss I think should be pursued particularly to avoid further knee pains. She has the relatively recent onset, 18 months ago, of decreased ability to smell. I will ask for an ENT evaluation on that. Orders: Orders Anti DNA DS Antibody Today R76.8 - Other specified abnormal immunological findings in serum Anti Extractable Nuclear Ag Today R76.8 - Other specified abnormal immunological findings in serum Sjogren's Antibodies Today R76.8 - Other specified abnormal immunological findings in serum Protein Creatinine Ratio, Ur Today R76.8 - Other specified abnormal immunological findings in serum Referrals Ear/Nose/Throat Referral R43.0 - Anosmia Coding Level of Care Code New Pt Level 3 (07449) Diagnoses Anosmia R43.0 Rib pain on right side R07.81 TEJINDER positive R76.8 Trochanteric bursitis of left hip M70.62 Primary osteoarthritis of both hands M19.041; M19.042 Osteoarthritis type: primary
[2023-01-05 08:42] VITALS: BP 118/76; PULSE 70; TEMP 36.6; O2SAT 98; BMI 37.9
== END 2023-01-05 09:32 | disposition home or self-care (01) ==
PROVIDERS: PCP Family Medicine; Visit Provider Internal Medicine Rheumatology
DX: R43.0 Anosmia (principal); R07.81 Pleurodynia; R76.8 Other specified abnormal immunological findings in serum; M70.62 Trochanteric bursitis, left hip; M19.041 Primary osteoarthritis, right hand; M19.042 Primary osteoarthritis, left hand
CPT/HCPCS: 99203

== ENCOUNTER → 2023-01-05 08:34 | Outpatient (BNVA) | payer BC, SELFPAY | PROVIDERS: PCP Family Medicine; Visit Provider Internal Medicine Rheumatology ==

== ENCOUNTER 2023-01-06 14:53 | Outpatient (REF) | payer BC, SELFPAY ==
[2023-01-07 13:23] LABS: Anti DNA DS Antibody <1 IU/mL; Antibody to SS-A Antigen <1.0 NEG AI (<1.0 NEG); Antibody to SS-B Antigen <1.0 NEG AI (<1.0 NEG); SM/Ribonucleoprotein Ab <1.0 NEG AI (<1.0 NEG); Smith Protein <1.0 NEG AI (<1.0 NEG)
== END 2023-01-06 14:54 | disposition home or self-care (01) ==
LOC: HO.LAB 14:53
PROVIDERS: PCP Family Medicine; Visit Provider Internal Medicine Rheumatology
DX: R76.8 Other specified abnormal immunological findings in serum (principal)
CPT/HCPCS: 36415; 86225; 86235

== ENCOUNTER 2023-01-11 14:54 | Outpatient (REF) | payer BC, SELFPAY ==
--- NOTE | ~2023-01-11 | US_ITS ---
EXAMINATION: US SOFT TISSUE HEAD/NECK CLINICAL INFORMATION: Localized swelling, mass and lump, neck. COMPARISON: None available. TECHNIQUE: Linear transducer ricks-scale and color Doppler examination of the right base of neck at subclavicular level with left side for comparison. FINDINGS: No focal mass or collection identified. Area of concern correlates to bony prominence of underlying bone. US/US soft tiss head and/or neck IMPRESSION: 1. No focal mass or collection identified. 2. Area of concern correlates to bony prominence of underlying bone.
[2023-01-11 16:05] LABS: Appearance Urine Clear; Color Urine Yellow; Glucose Urine UA Negative (Negative); Leukocyte Esterase Urine Negative (Negative); Nitrite Urine Negative (Negative); PH 7.5 (5.0-9.0); Specific Gravity - Urine 1.015 (1.005-1.025); Urine Blood Negative (Negative); Urine Ketones Negative (Negative); Urine Protein Negative (Neg-Trace)
[2023-01-11 16:34] LABS: Creatinine Urine 83.22 mg/dL; Total Protein Urine Random < 7 mg/dL (<12)
== END 2023-01-11 14:55 | disposition home or self-care (01) ==
LOC: HO.US 14:54
PROVIDERS: Absent Provider Internal Medicine Rheumatology; PCP Family Medicine; Visit Provider Family Medicine
DX: R22.1 Localized swelling, mass and lump, neck (principal); R76.8 Other specified abnormal immunological findings in serum; Z00.00 Encounter for general adult medical examination without abnormal findings
CPT/HCPCS: 76536; 81003; 82570; 84156

== ENCOUNTER 2023-03-04 10:24 | Outpatient (REF) | payer BC, SELFPAY ==
--- NOTE | ~2023-03-04 | CT_ITS ---
EXAMINATION: CT SINUS WITHOUT CONTRAST CLINICAL INFORMATION: Polyp of nasal cavity, anosmia COMPARISON: None available. TECHNIQUE: Multidetector CT acquisitions of the sinuses was obtained without IV contrast. This CT examination was performed using dose optimization techniques as appropriate, variously including the following: *Automated exposure control *Adjustment of mA and/or kV according to patient size (this includes techniques or standardized protocols for targeted exams where dose is matched to indication/reason for exam; i.e. extremities or head) *Use of iterative reconstruction technique DLP: 93.6 mGy-cm FINDINGS: The frontal sinuses are clear. The bilateral frontoethmoidal recesses are patent. The ethmoid air cells are clear. The anterior ethmoidal arteries are protected. There is no pneumatization of the jazlyn apollo. The olfactory fossae are symmetric in depth. The sphenoid sinuses are clear. The intersphenoid septum is directed to the right and encroaches on the carotid canal. The bilateral sphenoethmoidal recesses are patent. There is a sphenoid recess on the left that pneumatized is the anterior clinoid process. The maxillary sinuses demonstrate minimal mucosal thickening without osseous hypertrophy or dehiscence of the sinus jay. The ostiomeatal units are patent. There is no Ariadne cell or abnormal elongation of the infundibulum bilaterally. The maxilla demonstrates no periapical lucencies extending into the floor of the maxillary sinuses. The nasal septum is markedly deviated to the left with left bony spur. The choana are patent bilaterally. There is no brittani bullosa. The lamina papyracea are unremarkable. The orbits are also unremarkable. Degenerative changes of the bilateral temporal mandibular joints. Atherosclerotic calcifications of the bilateral carotid siphons. The visualized portions of the brain are unremarkable. CT/CT sinus wo IV con IMPRESSION: -Minimal mucosal thickening of the maxillary sinuses. -Leftward nasal septal deviation with left bony spur. -Incidentally noted rightward intersphenoid septum encroaching on the carotid canal.
== END 2023-03-04 10:25 | disposition home or self-care (01) ==
LOC: HO.CT 10:24
PROVIDERS: PCP Family Medicine; Visit Provider Otolaryngology
DX: J33.0 Polyp of nasal cavity (principal); R43.0 Anosmia
CPT/HCPCS: 70486

== ENCOUNTER 2023-05-10 10:18 | Outpatient (AMB) | payer BC, SELFPAY ==
[2023-05-10 10:27] VITALS: BP 112/64; PULSE 68; O2SAT 96
--- NOTE | 2023-05-10 10:27 | A.OFFPC_ITS ---
Vital Signs 05/10/23 10:27 Height 5 ft 1 in BMI Reason not done Patient refused/unable BP 112/64 Blood Pressure Location Rt radial Position Sitting Pulse 68 Pulse Source Pulse Oximeter Pulse Oximetry (%) 96 Oxygen Delivery Method Room Air Intake Visit Reasons: Arthritis flare up On hand & feet Intake Note: Patient is here for arthritis of hands and feet, and lingering flu symptoms since Wednesday. Allergies acetaminophen [From PERCOCET] Allergy (Mild, Verified 05/10/23 10:30) NAUSEA & VOMITING oxycodone [OXYCODONE] Allergy (Mild, Verified 05/10/23 10:30) NAUSEA & VOMITING Most paonkillers Allergy (Unknown, Uncoded 05/10/23 10:30) VOmiting OxyContin Allergy (Unknown, Uncoded 05/10/23 10:30) vomit Tobacco use date assessed: 05/10/23 Dental Screening Dental Screen Date: 05/10/23 Did you have a dental visit in the last 12 months?: Yes Did you have a dental problem in the last 6 months where you did not have access to dental care?: No Was dental information given to patient?: Patient has dentist HPI Arthritis flare up On hand & feet HPI Details 57 y/o female presents today with compla ints of arthritis flare up on her hands & feet. Pt also has complaints of flu symptoms since Wednesday. Pt reports she had recently just come back from a cruise. HPI Comments History of Present Illness Details Documentation assistance for Karl Falcon MD, was provided by Jeffery Newsome, Supervisor [employer] on 05/10/2023 10:50 A.M EST. I, Dr. Falcon, have read, observed, and verified documentation. [facility] Medical History Family history of premature coronary artery disease Surgical History History of cholecystectomy History of partial hysterectomy Family History Father No problems noted. Mother No problems noted. Brother CVD (cardiovascular disease) Daughter Grand mal seizure Family/Other Multiple sclerosis Social History Household Members: None Housing: House Alcohol intake: current Alcohol intake frequency: holidays/special occasions only Patient Tobacco Use Status: Never used Tobacco e-Cigarette/Vaping Use: Never Used service: No Current occupational status: employed Current occupation: Nurse Current occupational exposures/hazards: No Cognitive needs: No Hearing needs: No Vision needs: No Questionnaire PHQ-9 Over the last 2 weeks, how often have you been bothered by any of the following problems? 1. Little interest or pleasure in doing things: not at all 2. Feeling down, depressed, or hopeless: not at all 3. Trouble falling or staying asleep, or sleeping too much: not at all 4. Feeling tired or having little energy: not at all 5. Poor appetite or overeating: not at all 6. Feeling bad about yourself - or that you are a failure or have let yourself or your family down: not at all 7. Trouble concentrating on things, such as reading the newspaper or watching television: not at all 8. Moving or speaking so slowly that other people could have noticed. Or the opposite - being so fidgety or restless that you have been moving around a lot more than usual: not at all 9. Thoughts that you would be better off or of hurting yourself in some way: not at all Total score: 0 Source: Developed by Drs. Allen Pham, Ny Drake, Mitul Heredia and colleagues, with an educational farheen from [employer]. Thrive Questionnaire Date Thrive assessed: 05/10/23 I am a: Patient What is your living situation today?: I have a steady place to live Within the past 12 months, did the food you bought not last and you didn't have the money to get more?: Never true Within the past 12 months, did you worry whether your food would run out before you got money to buy more?: Never true Do you have trouble paying for medicines?: No Do you have trouble getting transportation to medical appointments?: No Do you have trouble paying your heating and electricity bill?: No Do you have trouble taking care of your child, family member or friend?: No Do you have trouble with day-to-day activities such as bathing, preparing meals, shopping, managing finances, etc.?: No Are you currently unemployed and looking for a job?: No Are you interested in more education?: No THRIVE Score: 0 AUDIT C Alcohol Use Questionnaire (AUDIT-C) 1. How often do you have a drink containing alcohol?: Monthly or less 2. How many drinks containing alcohol do you have on a typical day when you are drinking?: 3 or 4 3. How often do you have six or more drinks on one occasion?: Never Total Score: 2 RICKY-7 AMB Questionnaire RICKY-7 Date RICKY - 7 assessed: 05/10/23 Feeling nervous, anxious, or on edge: 2 = More than half the days Not being able to stop or control worryin = More than half the days Worrying too much about different things: 3 = Nearly every day Trouble relaxin = Nearly every day Being so restless that it is hard to sit still: 0 = Not at all Becoming easily annoyed or irritable: 3 = Nearly every day Feeling afraid as if something awful might happen: 2 = More than half the days Total RICKY-7 score (0-4 normal; 5-9 mild; 10-14 moderate; 15-21 severe): 15 Source: Developed by Drs. Allen Pham, Ny Drake, Mitul Heredia and colleagues, with an educational farheen from [employer]. Review of Systems Const Denies chills, Denies fatigue, Denies fever(s), Denies headache(s), Reports malaise and Denies weakness ENT Denies dizziness and Denies headache(s) Card Denies chest pain, Denies lightheadedness, Denies dyspnea and Denies other (Palpitations) Resp Reports cough, Denies dyspnea, Denies wheezing and Denies other ( shortness of breath) Musc Denies numbness and Denies tingling Neuro Denies dizziness, Denies headache(s), Denies numbness, Denies tingling, Denies paresthesias and Denies weakness Psych Denies anxiety and Denies depression Endo Denies fatigue Aller/Immun Denies wheezing Physical exam (Primary Care) Vital Signs: Last Vital Signs Pulse 68 05/10/23 10:27 BP 112/64 05/10/23 10:27 Pulse Ox 96 05/10/23 10:27 Oxygen Delivery Method Room Air 05/10/23 10:27 Tobacco/Smoking Status: Tobacco use Status Tobacco use date assessed 05/10/23 05/10/23 10:32 Patient Tobacco Use Status Never used Tobacco 05/10/23 10:32 e-Cigarette/Vaping Use Never Used 05/10/23 10:32 PHQ-9: PHQ-9 Score PHQ-9: Total score 0 05/10/23 10:39 Thrive Assessment: Date of Thrive Assessment Date Thrive assessed 05/10/23 05/10/23 10:39 Const General: no acute distress and well developed Nutritional Appearance: well nourished Orientation/consciousness: patient oriented x3 HENMT Head: Yes normocephalic and Yes atraumatic Eyes General: appearance normal, both eyes and all related structures Pupils: Equal, round and reactive pupils present EOM: EOMs intact bilaterally Resp Other: Wheezing, rhonhi, crackles, L worse than R Effort & Inspection: normal respiratory effort Auscultation: not clear to auscultation bilaterally Cardio Rate: regular rate Rhythm: regular rhythm Heart sounds: S1 normal heart sound present, S2 normal heart sound present, no gallops, no murmurs and no rubs Neuro General: patient oriented x3 and gait normal Cranial nerves: Yes Equal, round and reactive pupils present Psych Affect: normal affect Assessment and Plan Assessment & Plan (1) Viral illness: Code(s): B34.9 - Viral infection, unspecified Plan: Recently?tested?positive?for?influenza. Still?having?significant?cough?and?malaise.??Also?abnormal?lung?sounds?at?bilate ral?bases,?left?worse?than?right Concern?for?developing?pneumonia Check?chest?x-ray (2) Abnormal lung sounds: Code(s): R09.89 - Other specified symptoms and signs involving the circulatory and respiratory systems Plan: As?above,?concern?for?a developing?pneumonia?versus?bronchitis Check?chest?x-ray Start?Z-Edgardo?and?prednisone (3) Polyarthralgia: Code(s): M25.50 - Pain in unspecified joint Plan: Likely?exacerbated?by?recent?influenza. Follow-up?with?rheumatology?as?recommended Orders: Orders XR chest 2V Today R05.9 - Cough, unspecified, R09.89 - Other specified symptoms and signs involving the circulatory and respiratory systems Medications: New azithromycin (Zithromax Z-Edgardo) take 500 mg today (day 1), then 250 mg for 4 days (days 2-5) PO 6 tabs 0RF 5 days prednisone 40 mg (2 x 20 mg) PO DAILY 10 tabs 0RF 5 days Coding Level of Care Code Est Pt Level 4 (52032) Diagnoses Viral illness B34.9 Abnormal lung sounds R09.89 Polyarthralgia M25.50
== END 2023-05-10 10:52 | disposition home or self-care (01) ==
PROVIDERS: PCP Family Medicine; Visit Provider Family Medicine
DX: B34.9 Viral infection, unspecified (principal); R09.89 Other specified symptoms and signs involving the circulatory and respiratory systems; M25.50 Pain in unspecified joint
CPT/HCPCS: 99214

== ENCOUNTER 2023-05-10 11:58 | Outpatient (REF) | payer BC, SELFPAY ==
--- NOTE | ~2023-05-10 | XR_ITS ---
EXAMINATION: XR CHEST CLINICAL INFORMATION: Other specified symptoms and signs involving the circulatory system. COMPARISON: 01/31/2023 TECHNIQUE: 2 views of the chest were obtained. FINDINGS: The lungs are hypoexpanded. The heart and pulmonary vessels appear normal. Some bibasilar atelectasis is present, new when compared to the prior study. No pleural effusions are seen. There is mild increased patchy density seen in the posterior basal segment of the left lower lobe which could represent an area of consolidation. XR/XR chest 2V IMPRESSION: 1. Hypoexpanded lungs with bibasilar atelectasis. 2. Possible left lower lobe consolidation.
== END 2023-05-10 11:59 | disposition home or self-care (01) ==
LOC: HO.HMGCX 11:58
PROVIDERS: PCP Family Medicine; Visit Provider Family Medicine
DX: R09.89 Other specified symptoms and signs involving the circulatory and respiratory systems (principal); R05.9 Cough, unspecified
CPT/HCPCS: 71046

== ENCOUNTER 2023-05-24 09:46 | Outpatient (AMB) | payer BC, SELFPAY ==
[2023-05-24 09:59] VITALS: BP 118/68; PULSE 66; O2SAT 96
--- NOTE | 2023-05-24 09:59 | MHC.PC.OV ---
Vital Signs 05/24/23 09:59 BMI Reason not done Patient refused/unable BP 118/68 Blood Pressure Location Lt brachial Position Sitting Pulse 66 Pulse Source Pulse Oximeter Pulse Oximetry (%) 96 Oxygen Delivery Method Room Air Intake Visit Reasons: Follow up xray results Intake Note: Patient is here for follow up on x-ray. Allergies acetaminophen [From PERCOCET] Allergy (Mild, Verified 05/24/23 10:00) NAUSEA & VOMITING oxycodone [OXYCODONE] Allergy (Mild, Verified 05/24/23 10:00) NAUSEA & VOMITING Most paonkillers Allergy (Unknown, Uncoded 05/24/23 10:00) VOmiting OxyContin Allergy (Unknown, Uncoded 05/24/23 10:00) vomit Tobacco use date assessed: 05/24/23 HPI Follow up xray results HPI Details 57 y/o female presents to f/u xray results. Had started her on a z-edgardo and prednisone last office visit for abnormal lung sounds. She reports ongoing congestion. Chest x-ray 05/10/23 did show hypoexpanded lungs with bibasilar atelactasis and possible L lower lobe consolidation. [facility] Medical History Family history of premature coronary artery disease Surgical History History of cholecystectomy History of partial hysterectomy Family History Father No problems noted. Mother No problems noted. Brother CVD (cardiovascular disease) Daughter Grand mal seizure Family/Other Multiple sclerosis Social History Household Members: None Housing: House Alcohol intake: current Alcohol intake frequency: holidays/special occasions only Patient Tobacco Use Status: Never used Tobacco e-Cigarette/Vaping Use: Never Used service: No Current occupational status: employed Current occupation: Nurse Current occupational exposures/hazards: No Cognitive needs: No Hearing needs: No Vision needs: No Questionnaire Thrive Questionnaire Date Thrive assessed: 05/10/23 RICKY-7 AMB Questionnaire RICKY-7 Date RICKY - 7 assessed: 05/10/23 Source: Developed by Drs. Allen Pham, Ny Drake, Mitul Heredia and colleagues, with an educational farheen from [employer]. Review of Systems Const Denies chills, Denies fatigue, Denies fever(s), Denies headache(s) and Denies weakness ENT Denies dizziness and Denies headache(s) Card Denies chest pain, Denies lightheadedness, Denies dyspnea and Denies other (Palpitations) Resp Denies cough, Denies dyspnea, Denies wheezing and Denies other ( shortness of breath) Musc Denies numbness and Denies tingling Neuro Denies dizziness, Denies headache(s), Denies numbness, Denies tingling, Denies paresthesias and Denies weakness Psych Denies anxiety and Denies depression Endo Denies fatigue Aller/Immun Denies wheezing Physical exam (Primary Care) Vital Signs: Last Vital Signs Pulse 66 05/24/23 09:59 BP 118/68 05/24/23 09:59 Pulse Ox 96 05/24/23 09:59 Oxygen Delivery Method Room Air 05/24/23 09:59 Tobacco/Smoking Status: Tobacco use Status Tobacco use date assessed 05/24/23 05/24/23 10:05 Patient Tobacco Use Status Never used Tobacco 05/24/23 09:59 e-Cigarette/Vaping Use Never Used 05/24/23 09:59 Thrive Assessment: Date of Thrive Assessment Date Thrive assessed 05/10/23 05/24/23 09:59 Const General: no acute distress and well developed Nutritional Appearance: well nourished Orientation/consciousness: patient [facility]: Yes normocephalic and Yes atraumatic Eyes General: appearance normal, both eyes and all related structures Pupils: Equal, round and reactive pupils present EOM: EOMs intact bilaterally Resp Effort & Inspection: normal respiratory effort Auscultation: clear to auscultation bilaterally Cardio Rate: regular rate Rhythm: regular rhythm Heart sounds: S1 normal heart sound present, S2 normal heart sound present, no gallops, no murmurs and no rubs Neuro General: patient oriented x3 and gait normal Cranial nerves: Yes Equal, round and reactive pupils present Psych Affect: normal affect Assessment and Plan Assessment & Plan (1) Abnormal lung sounds: Code(s): R09.89 - Other specified symptoms and signs involving the circulatory and respiratory systems Plan: Patient?had?had?a?lobar?pneumonia?which?was?treated?initially?with?a?Z-Edgardo?and?switch?to?Keflex. Lungs?are?clear?and?patient?is?breathing?well. Resolved (2) Sinusitis: Code(s): J32.9 - Chronic sinusitis, unspecified Plan: Significant?nasal?mucosal?inflammation?and?discharge. Tender?sinuses Possible?sinus?infection.??She?has?just?had?a?course?of?Z-Edgardo?and?Keflex. She?will?trial?pseudoephedrine.??If?not?improving?in?a?couple?of?days,?she?can?start?Augmentin. Medications: New pseudoephedrine HCl ER 120 mg PO Q12H 7 days PRN 7 tabs 0RF nasal congestion amoxicillin-pot clavulanate 500-125 mg (Augmentin) 1 tab PO Q12H 10 days 20 tabs 0RF Discontinued cephalexin Discontinued Reason: Patient Completed Course 500 mg PO Q12H 10 days 20 caps 0RF azithromycin (Zithromax Z-Edgardo) Discontinued Reason: Patient Completed Course take 500 mg today (day 1), then 250 mg for 4 days (days 2-5) PO 5 days 6 tabs 0RF Coding Level of Care Code Est Pt Level 3 (29176) Diagnoses Abnormal lung sounds R09.89 Sinusitis J32.9
== END 2023-05-24 11:00 | disposition home or self-care (01) ==
PROVIDERS: PCP Family Medicine; Visit Provider Family Medicine
DX: R09.89 Other specified symptoms and signs involving the circulatory and respiratory systems (principal); J32.9 Chronic sinusitis, unspecified
CPT/HCPCS: 99213

== ENCOUNTER 2023-06-08 11:25 | Outpatient (AMB) | payer BC, SELFPAY ==
--- NOTE | 2023-06-08 11:40 | AM.OFFWIN_ITS ---
Intake Vital Signs 06/08/23 11:41 BMI Reason not done Patient refused/unable BP 98/58 L Blood Pressure Location Lt brachial Position Sitting Respiration 12 Pulse 73 Pulse Source Pulse Oximeter Pulse Oximetry (%) 96 Oxygen Delivery Method Room Air Intake Visit Reasons: Back Pain Intake Note: Patient is here for back pain x5 days. Patient reports pain was sudden onset and no injury caused the pain to start. Patient states she went to urgent care in [place] and was given 3 tablets of cyclobenzaprine for pain which is effective. 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 Patient Tobacco Use Status: Never used Tobacco Band Booker Required: No Allergies oxycodone [OXYCODONE] Allergy (Mild, Verified 06/08/23 12:06) NAUSEA & VOMITING Most paonkillers Allergy (Unknown, Uncoded 06/08/23 11:44) VOmiting OxyContin Allergy (Unknown, Uncoded 06/08/23 11:44) vomit Medication List - Last Reconciled 06/08/23 by Sola Clements, [facility]- bupropion HCl 150 mg PO BEDTIME clonazepam 2 mg PO BID PRN diclofenac sodium 1% 2 grams topical QID 30 days meloxicam 15 mg PO DAILY 30 days ondansetron 8 mg PO Q8H PRN 5 days trazodone 100 mg PO DAILY Do you need a note to return to daycare/school/sports/work: Yes HPI HPI Comments History of Present Illness Details Here today with complaints of right lower back pain. She reports that this started out of the blue a few days ago. Denies any overt injury. 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 However this is not a work-related injury. She was evaluated at urgent care prior to this appointment and treated with 3 days of cyclobenzaprine. Does admit that this provided her relief and that her symptoms are improving however they are not completely gone. She does not feel that she can return to work and do the heavy lifting that is required of her at this time. The pain is in the right lower back and radiates to the right buttocks and a little bit towards the right lower quadrant. Denies hx of kidney stones, urinary issues, fever, chills, vomiting. Admits history of sciatica and that is what she feels like this is Denies any red flag symptoms associated with back pain Did have an Rx for meloxicam however has run out and needs refills. [facility] Medical History Family history of premature coronary artery disease Surgical History History of cholecystectomy History of partial hysterectomy Family History Father No problems noted. Mother No problems noted. Brother CVD (cardiovascular disease) Daughter Grand mal seizure Family/Other Multiple sclerosis Social History Household Members: None Housing: House Alcohol intake: current Alcohol intake frequency: holidays/special occasions only Patient Tobacco Use Status: Never used Tobacco e-Cigarette/Vaping Use: Never Used service: No Current occupational status: employed Current occupation: Nurse Current occupational exposures/hazards: No Cognitive needs: No Hearing needs: No Vision needs: No Review of Systems Const All systems reviewed & are unremarkable except as noted in HPI and below Physical Exam Vital Signs: Last Vital Signs Pulse 73 06/08/23 11:41 Resp 12 06/08/23 11:41 BP 98/58 L 06/08/23 11:41 Pulse Ox 96 06/08/23 11:41 Oxygen Delivery Method Room Air 06/08/23 11:41 Const Other: Awake alert oriented Neurovascularly intact Pain with straight leg raise on the right, negative hip thrust, leg length equal, no edema bilateral lower extremities, moves all extremities, normal gait. Pain with palpation over right SI joint. No CVAT bilat Skin intact Assessment & Plan Assessment & Plan (1) Low back pain radiating to right lower extremity: Code(s): M54.50 - Low back pain, unspecified; M79.604 - Pain in right leg Plan: Pain has been improving since onset. Was only given 3 tabs cyclobenzaprine which she did use; admits that this did help her pain. I have refilled her meloxicam 15 mg and she should continue to take this daily as this can also help. I have also given her a few more days of cyclobenzaprine to use as needed. Encouraged her to avoid bed rest. Move through gentle range of motion. Supportive care using heat or ice as well as topicals can help. Should her symptoms worsen or not completely resolve she should follow up with her primary care provider for any further instructions Plan This note is constructed using voice recognition software. While every effort has been made to ensure accuracy in agricultural engineering teacher, still errors may have been included Sometimes, these errors may affect the content or meaning of the given sentence . Total time spent caring for the patient today was 30 minutes. This includes time spent before the visit reviewing the chart, time spent during the visit, and time spent after the visit on documentation Medications: New cyclobenzaprine 5 mg PO TID PRN 15 tabs 0RF muscle spasm Refilled meloxicam 15 mg PO DAILY 30 days 30 tabs 2RF Coding Level of Care Code Est Pt Level 4 (82631) Diagnoses Low back pain radiating to right lower extremity M54.50; M79.604
[2023-06-08 11:41] VITALS: BP 98/58; PULSE 73; RESP 12; O2SAT 96
== END 2023-06-08 12:17 | disposition home or self-care (01) ==
PROVIDERS: PCP Family Medicine; Visit Provider Nurse Practitioner Family
DX: M54.50 Low back pain, unspecified (principal); M79.604 Pain in right leg
CPT/HCPCS: 99214

== ENCOUNTER 2023-07-09 10:56 | Outpatient (REF) | payer BC, SELFPAY ==
--- NOTE | ~2023-07-09 | MM_ITS ---
EXAMINATION: MM DIAGNOSTIC DIGITAL BREAST TOMOSYNTHESIS, BILATERAL CLINICAL INFORMATION: Patient due for bilateral screening. Also 6 month follow-up (fourth) calcifications upper outer left breast. If stable this will establish a two-year stability. COMPARISON: Mammography: 12/30/2021, 06/17/2021, 05/26/2021 (BI-RADS 0), 03/04/2016, 02/21/2015 TECHNIQUE: Digital breast tomosynthesis is performed in both the craniocaudal and mediolateral oblique views along with computer-aided detection (CAD). Synthesized 2D images are generated from the tomosynthesis. In addition, 2-D spot magnification left CC and left ML views were obtained. FINDINGS: The breasts are heterogeneously dense, which may obscure small masses (ACR BI-RADS breast composition Category c). Calcifications in the upper outer left breast now have a classically benign morphology, with 4 groups of tightly grouped coarse calcifications, several which have coalesced into one larger calcification, consistent with benign etiology, most likely fibroadenomatoid change. No further follow-up recommended as this establishes a two-year stability with no aggressive changes. Otherwise, There are no suspicious masses, suspicious grouped calcifications, or areas of architectural distortion in either breast. The parenchymal pattern is stable from prior exams. No skin or axillary changes. MM/MM tomosynthesis diagnostic BI IMPRESSION: No findings in either breast suspicious for malignancy. Calcifications in the upper outer left breast are similar over 2 years with no aggressive changes. No further follow-up recommended as these are benign. Recommend the patient resume routine annual screening mammography to include both breasts. ASSESSMENT: BI-RADS BI-RADS 2 - Benign Findings RECOMMENDATION: 1 year F/U Results were provided to the patient at time of visit by the technologist. This patient's information was entered into a reminder system with a target due date for their next mammogram.
== END 2023-07-09 10:57 | disposition home or self-care (01) ==
LOC: HO.MAMMO 10:56
PROVIDERS: PCP Family Medicine; Visit Provider Family Medicine
DX: R92.1 Mammographic calcification found on diagnostic imaging of breast (principal)
CPT/HCPCS: 77062; 77066

== ENCOUNTER → 2023-07-09 11:00 | Outpatient (BNV) | payer BC, SELFPAY | PROVIDERS: PCP Family Medicine; Visit Provider Radiology Diagnostic Radiology | DX: R92.1 Mammographic calcification found on diagnostic imaging of breast (principal) | CPT/HCPCS: 77062; 77066 ==

== ENCOUNTER 2024-01-03 12:20 | Outpatient (AMB) | payer OTHER, SELFPAY ==
--- NOTE | 2024-01-03 12:22 | MHC.PC.OV ---
Vital Signs 01/03/24 12:26 Height 5 ft 1 in Weight 195 lb 2 oz BMI 36.9 BP 114/66 Blood Pressure Location Lt brachial Position Sitting Respiration 14 Pulse 78 Pulse Source Pulse Oximeter Pulse Oximetry (%) 97 Oxygen Delivery Method Room Air Intake Visit Reasons: Arthritis pain, questions on travel to [place] Intake Note: patient here to follow up on arthritis pain Allergies oxycodone [OXYCODONE] Allergy (Mild, Verified 01/03/24 12:38) NAUSEA & VOMITING Most paonkillers Allergy (Unknown, Uncoded 06/08/23 11:44) VOmiting OxyContin Allergy (Unknown, Uncoded 06/08/23 11:44) vomit Medication List - Last Reconciled 01/03/24 by Sola Clements [facility] meloxicam 15 mg PO DAILY 30 days Tobacco use date assessed: 05/24/23 Dental Screening Dental Screen Date: 05/10/23 HPI HPI Comments History of Present Illness Details 58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 # wheezing. Started about 2 weeks ago. Went to an urgent care, she was negative for COVID, flu, RSV. Reports a history of lobar pneumonia. She reports that a chest x-ray was done at the time of her urgent care visit and it was negative for pneumonia. She reports since acquiring the pneumonia, she feels like she has episodic wheezing and a productive cough. She is not currently on any inhalers. She is not active with pulmonology. She denies any fever, chills or hemoptysis. Wonders if she can get an inhaler. # she has a known bladder prolapse with urinary incontinence. This has been ongoing for years. She was supposed to have surgery however this did not happen. She is not active with a urologist at this time but is interested in a referral to proceed with treatment. # complains of arthritic type pain in her right clavicle, bilat hands and bilat feet. Ongoing for years. She has had imaging done of her right clavicle in the past, from what I can see on chart review in 2022 she had both an x-ray and ultrasound imaging done which just showed calcification no other abnormalities. She reports that the pain in the right clavicle is worse since onset. Worse when she is sleeping. She is right-hand dominant. The pain in her hands is present all of the time, worse over the base of bilat thumbs. And the pain in her feet is also present all the time. She does have a prescription for meloxicam which she does take from time to time however she does not like to take medications regularly. She reports that there is mild effect from the meloxicam. In addition she does use [id number] analgesics which provides some short-lived relief. She has soft tissue growth on the outside of bilat feet that are getting worse with time. She is not active with a outside sales engineer or a specialist at this time. She reports that she had 1 consult with rheumatology several years ago and no follow up since this time. She denies a history of autoimmune arthritis. # finally she is going to [facility] in about 3 weeks for an 18 day so far a trip. The flight is about 20 hours long. She did follow up with the travel clinic to get her vaccinations and antidiarrheals and malaria treatments. Exam: Awake alert NAD RRR Faint ins/exp wheeze throughout, occassional cough, no SOB enlarged R sternoclavicular joint, painful w/ palp. OVerlying skin intact. Hands/fingers neurovasc intact, no obvious deformity. Bilat feet neurovasc intact, soft tissue swelling on the lateral aspect of bilat feet, proximal to the 5th toe, painful w/ palpation, no erythema or warmth, skin intact Plan: Albuterol for her wheezing. If this is not effective, recommend follow up with primary care. Refer to urology for bladder prolapse treatment For her aches and pains, she reports that she would decline any type of surgical intervention if that was necessary for the right clavicle. I have made the recommendation for her to start physical therapy to see if that will help the pain in the right clavicle. She has already had imaging done of her hands in the past. She declines any cortisone injection referral at this time. Reports that she would like to continue to use meloxicam. A new prescription has been sent in for this. In for her feet, the plan will be to check x-rays of bilat feet and refer to Podiatry. As she is going on a trip with a very long flight, I will prescribe a short burst of prednisone to be used prior to going to provide some comfort for her in regards to her generalized aches and pains. I have educated her on the use of this medication. This note is constructed using voice recognition software. While every effort has been made to ensure accuracy in plush finisher, still errors may have been included Sometimes, these errors may affect the content or meaning of the given sentence . Total time spent caring for the patient today was 40 minutes. This includes time spent before the visit reviewing the chart, time spent during the visit, and time spent after the visit on documentation [facility] Medical History Family history of premature coronary artery disease Surgical History History of cholecystectomy History of partial hysterectomy Family History Father No problems noted. Mother No problems noted. Brother CVD (cardiovascular disease) Daughter Grand mal seizure Family/Other Multiple sclerosis Social History Household Members: None Housing: House Alcohol intake: current Alcohol intake frequency: holidays/special occasions only Patient Tobacco Use Status: Never used Tobacco e-Cigarette/Vaping Use: Never Used service: No Current occupational status: employed Current occupation: Nurse Current occupational exposures/hazards: No Cognitive needs: No Hearing needs: No Vision needs: No Questionnaire Thrive Questionnaire Date Thrive assessed: 05/10/23 RICKY-7 AMB Questionnaire RICKY-7 Date RICKY - 7 assessed: 05/10/23 Source: Developed by Drs. Allen Pham, Ny Drake, Mitul Heredia and colleagues, with an educational farheen from [employer]. Physical exam (Primary Care) Vital Signs: Last Vital Signs Pulse 78 01/03/24 12:26 Resp 14 01/03/24 12:26 BP 114/66 01/03/24 12:26 Pulse Ox 97 01/03/24 12:26 Oxygen Delivery Method Room Air 01/03/24 12:26 BMI result Body Mass Index 36.9 Tobacco/Smoking Status: Tobacco use Status Tobacco use date assessed 05/24/23 01/03/24 12:23 Patient Tobacco Use Status Never used Tobacco 01/03/24 12:23 e-Cigarette/Vaping Use Never Used 01/03/24 12:23 Thrive Assessment: Date of Thrive Assessment Date Thrive assessed 05/10/23 01/03/24 12:23 Assessment and Plan Assessment & Plan (1) Foot pain, bilateral: Code(s): M79.671 - Pain in right foot; M79.672 - Pain in left foot (2) Urinary incontinence: Code(s): R32 - Unspecified urinary incontinence Qualifiers: Urinary Incontinence type: mixed stress and urge incontinence Qualified Code(s): N39.46 - Mixed incontinence (3) Bladder prolapse, female, acquired: Code(s): N81.10 - Cystocele, unspecified (4) Enlargement of right sternoclavicular joint: Code(s): M25.811 - Other specified joint disorders, right shoulder (5) Osteoarthritis of hands, bilateral: Code(s): M19.041 - Primary osteoarthritis, right hand; M19.042 - Primary osteoarthritis, left hand Qualifiers: Osteoarthritis type: primary Qualified Code(s): M19.041 - Primary osteoarthritis, right hand; M19.042 - Primary osteoarthritis, left hand Orders: Orders XR foot RT min 3V Today M79.671 - Pain in right foot, M79.672 - Pain in left foot XR foot LT min 3V Today M79.671 - Pain in right foot, M79.672 - Pain in left foot Referrals Urology Referral N81.10 - Cystocele, unspecified, R32 - Unspecified urinary incontinence Podiatry Referral M79.671 - Pain in right foot, M79.672 - Pain in left foot Medications: New prednisone 40 mg (2 x 20 mg) PO DAILY 20 tabs 0RF albuterol sulfate 90 mcg/actuation 2 puffs inhalation Q4-6H PRN 8.5 grams 0RF shortness of breath or wheezing 30 days Changed From meloxicam 15 mg PO DAILY 30 days 30 tabs 2RF To meloxicam 15 mg PO DAILY 90 tabs 0RF Coding Level of Care Code Est Pt Level 5 (97365) Complex EM visit Add On G2211 Diagnoses Foot pain, bilateral M79.671; M79.672 Mixed stress and urge urinary incontinence N39.46 Urinary Incontinence type: mixed stress and urge incontinence Bladder prolapse, female, acquired N81.10 Enlargement of right sternoclavicular joint M25.811 Primary osteoarthritis of both hands M19.041; M19.042 Osteoarthritis type: primary
[2024-01-03 12:26] VITALS: BP 114/66; PULSE 78; RESP 14; O2SAT 97; BMI 36.9
== END 2024-01-03 14:46 | disposition home or self-care (01) ==
PROVIDERS: PCP Family Medicine; Visit Provider Nurse Practitioner Family
DX: M79.671 Pain in right foot (principal); M79.672 Pain in left foot; N39.46 Mixed incontinence; N81.10 Cystocele, unspecified; M25.811 Other specified joint disorders, right shoulder; M19.041 Primary osteoarthritis, right hand; M19.042 Primary osteoarthritis, left hand

== ENCOUNTER → 2024-01-03 12:20 | Outpatient (BNVA) | payer OTHER, SELFPAY | PROVIDERS: PCP Family Medicine; Visit Provider Nurse Practitioner Family | DX: M79.671 Pain in right foot (principal); M79.672 Pain in left foot; N39.46 Mixed incontinence; N81.10 Cystocele, unspecified; M25.811 Other specified joint disorders, right shoulder; M19.041 Primary osteoarthritis, right hand; M19.042 Primary osteoarthritis, left hand | CPT/HCPCS: 99212 ==

== ENCOUNTER 2024-01-04 12:07 | Outpatient (REF) | payer OTHER, SELFPAY ==
--- NOTE | ~2024-01-04 | XR_ITS ---
EXAMINATION: XR FOOT, RIGHT XR FOOT, LEFT CLINICAL INFORMATION: Bilateral foot pain. COMPARISON: None available. TECHNIQUE: AP, lateral, and oblique views of each foot. FINDINGS: RIGHT FOOT: Bunionette deformity. No fractures. Bipartite medial hallux sesamoid. Joints appear well preserved. No subluxation. Mild soft tissue swelling lateral to the 5th metatarsal head. No erosions. Moderate sized enthesopathic spur is present at the plantar fascial origin on the calcaneus. LEFT FOOT: Bunionette deformity with mild soft tissue swelling lateral to the 5th metatarsal head. No fractures. Bipartite medial hallux sesamoid. No erosions. There is degeneration at the articulation between the 2nd and 3rd metatarsal bases with osteophyte formation and sclerosis. Joints otherwise appear well preserved, though the interphalangeal joints are not well assessed on these images. No erosions. Moderate sized enthesopathic spur is present at the plantar fascial origin on the calcaneus. XR/XR foot LT min 3V IMPRESSION: 1. Bilateral bunionette deformities. 2. Mild osteoarthritis at the articulation between the left 2nd and 3rd metatarsal bases. 3. No acute osseous findings. No evidence of inflammatory arthropathy. 4. Plantar calcaneal enthesopathic spurs. Electronically signed by: Chapo Mae MD 01/04/2024 02:38 PM EDT
--- NOTE | ~2024-01-04 | XR_ITS ---
EXAMINATION: XR FOOT, RIGHT XR FOOT, LEFT CLINICAL INFORMATION: Bilateral foot pain. COMPARISON: None available. TECHNIQUE: AP, lateral, and oblique views of each foot. FINDINGS: RIGHT FOOT: Bunionette deformity. No fractures. Bipartite medial hallux sesamoid. Joints appear well preserved. No subluxation. Mild soft tissue swelling lateral to the 5th metatarsal head. No erosions. Moderate sized enthesopathic spur is present at the plantar fascial origin on the calcaneus. LEFT FOOT: Bunionette deformity with mild soft tissue swelling lateral to the 5th metatarsal head. No fractures. Bipartite medial hallux sesamoid. No erosions. There is degeneration at the articulation between the 2nd and 3rd metatarsal bases with osteophyte formation and sclerosis. Joints otherwise appear well preserved, though the interphalangeal joints are not well assessed on these images. No erosions. Moderate sized enthesopathic spur is present at the plantar fascial origin on the calcaneus. XR/XR foot RT min 3V IMPRESSION: 1. Bilateral bunionette deformities. 2. Mild osteoarthritis at the articulation between the left 2nd and 3rd metatarsal bases. 3. No acute osseous findings. No evidence of inflammatory arthropathy. 4. Plantar calcaneal enthesopathic spurs. Electronically signed by: Chapo Mae MD 01/04/2024 02:38 PM EDT
== END 2024-01-04 12:08 | disposition home or self-care (01) ==
LOC: HO.HMGCX 12:07
PROVIDERS: PCP Family Medicine; Visit Provider Nurse Practitioner Family
DX: M79.671 Pain in right foot (principal); M79.672 Pain in left foot
CPT/HCPCS: 73630

== ENCOUNTER 2024-03-27 08:44 | Outpatient (AMB) | payer OTHER, SELFPAY ==
--- NOTE | 2024-03-26 20:16 | MHC.OFFVIS ---
Intake Visit Reasons: cystocele/ urinary incontinence Intake Note: New patient is present to establish care for Urinary incontinence Any Urology Medications: None Antibiotic Allergy: None Blood Thinner: None PVR: 0ml's Family History: Bladder Cancer? None Prostate Cancer? 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 Accompanied by: Self / Same As Patient Allergies oxycodone [OXYCODONE] Allergy (Mild, Verified 03/27/24 09:18) NAUSEA & VOMITING Most paonkillers Allergy (Unknown, Uncoded 03/27/24 09:18) VOmiting OxyContin Allergy (Unknown, Uncoded 03/27/24 09:18) vomit Medication List - Last Reconciled 03/27/24 by Elder Martinez MD albuterol sulfate 90 mcg/actuation 2 puffs inhalation Q4-6H PRN 30 days meloxicam 15 mg PO DAILY prednisone 40 mg (2 x 20 mg) PO DAILY solifenacin (Vesicare) 10 mg PO DAILY HPI Comments Details: Rosie is a 58-year-old female who is here as a new patient evaluation with complaints of urinary incontinence. History of partial hysterectomy for heavy bleeding, 2 vaginal births approximately 7 and 8 lb, 2 miscarriages. Denies history of nicotine use. She denies family history of bladder cancer. She complains of a strong urge associated with leakage. She also has noted vaginal bulge. She denies dysuria or gross hematuria. Urinalysis today negative for infection. She states she has not been on bladder medication in the past. She has tried doing Kegel's. Discussed further evaluation with renal and bladder ultrasound, trial of VESIcare 10 mg daily, referral to pelvic floor physical therapy. Follow-up for pelvic exam [facility] Medical History Family history of premature coronary artery disease Surgical History History of cholecystectomy History of partial hysterectomy Family History Father No problems noted. Mother No problems noted. Brother CVD (cardiovascular disease) Daughter Grand mal seizure Family/Other Multiple sclerosis Social History Household Members: None Housing: House Alcohol intake: current Alcohol intake frequency: holidays/special occasions only Patient Tobacco Use Status: Never used Tobacco e-Cigarette/Vaping Use: Never Used service: No Current occupational status: employed Current occupation: Nurse Current occupational exposures/hazards: No Cognitive needs: No Hearing needs: No Vision needs: No Review of Systems Const All systems reviewed & are unremarkable except as noted in HPI and below Reports no additional complaints Eyes Reports no additional complaints ENT Reports no additional complaints Card Reports no additional complaints Resp Reports no additional complaints GI Reports no additional complaints Reports as per HPI Musc Reports no additional complaints Skin/Breast Reports system reviewed and no additional complaints, except as documented Neuro Reports no additional complaints Psych Reports no additional complaints Endo Reports no additional complaints Akshat/Lymph Reports no additional complaints Aller/Immun Reports no additional complaints Physical Exam Const General: cooperative, healthy appearing and no acute distress Nutritional Appearance: overweight Orientation/consciousness: patient oriented x3 HEENT Head: Yes normal to inspection, Yes normocephalic and Yes atraumatic Eyes Conjunctivae: conjunctivae normal Neck Neck: Yes normal visual inspection and Yes trachea midline Chest Chest palpation & inspection: normal inspection of the chest Resp Effort & Inspection: normal respiratory effort Cardio Jugular venous distension: no JVD GI Inspection: Yes normal to inspection Neuro General: patient oriented x3 Extrem General: No edema Psych Appearance: grossly normal Office Procedures Post Void Residual Post Residual Void Post Void Residual (PVR): 0 [id number] Void Residual by ultrasound Results AMB Urinalysis, Automated UA Leukoctes 0 Campbell/uL Last Edit by Megan Owen CMA on 03/27/24 09:23 UA Nitrite Negative Last Edit by Megan Owen CMA on 03/27/24 09:23 UA Urobilinogen 0.2 mg/dL Last Edit by Megan Owen CMA on 03/27/24 09:23 UA Protein 0 mg/dL Last Edit by Megan Owen CMA on 03/27/24 09:23 UA pH 6.0 Last Edit by Megan Owen CMA on 03/27/24 09:23 UA Blood 0 Jv/uL Last Edit by Megan Owen CMA on 03/27/24 09:23 UA Specific [place] 1.010 Last Edit by Megan Owen CMA on 03/27/24 09:23 UA Ketone Negative Last Edit by Megan Owen CMA on 03/27/24 09:23 UA Bilirubin 0 mg/dL Last Edit by Megan Owen CMA on 03/27/24 09:23 UA Glucose 0 mg/dL Last Edit by Megan Owen CMA on 03/27/24 09:23 Assessment & Plan Assessment & Plan (1) Urinary incontinence: Code(s): R32 - Unspecified urinary incontinence Category: Medical Qualifiers: Urinary Incontinence type: mixed stress and urge incontinence Qualified Code(s): N39.46 - Mixed incontinence (2) Urinary urgency: Code(s): R39.15 - Urgency of urination Category: Medical (3) Pelvic floor weakness: Code(s): N81.89 - Other female genital prolapse Category: Medical Plan Renal and bladder ultrasound, trial of VESIcare 10 mg daily, referral to pelvic floor physical therapy. Orders: Orders AMB Urinalysis Automated Today Z13.9 - Encounter for screening, unspecified AMB Post Void Residual by ultrasound Today N39.46 - Mixed incontinence US retroperitoneal comp Today N39.46 - Mixed incontinence, R39.15 - Urgency of urination Referrals Pelvic Asbestos Remover Referral N39.46 - Mixed incontinence, N81.89 - Other female genital prolapse, R39.15 - Urgency of urination Medications: New solifenacin (Vesicare) 10 mg PO DAILY 30 tabs 5RF Patient Instructions: The patient had an opportunity to ask questions regarding treatment plan. The patient expressed understanding and agreement with the above treatment plan. The patient is aware they should contact our office by phone for worsening of their current condition or the appearance of new symptoms. Compliance is encouraged with any medications and followup testing that is ordered. It is a privilege to be allowed the opportunity to participate in the urologic care of your patient. If you have any questions or concerns regarding treatment for the above conditions please do not hesitate to contact me. The office telephone contact is [phone]. This note is constructed in part using voice recognition software. While every effort has been made to ensure accuracy tire design engineer errors may have been included. Yours sincerely, Elder Martinez MD Coding Level of Care Code New Pt Level 4 (65095) Diagnoses Mixed stress and urge urinary incontinence N39.46 Urinary Incontinence type: mixed stress and urge incontinence Urinary urgency R39.15 Pelvic floor weakness N81.89 CPT Codes Post Residual Void - PVR CPT Code: 70056-[id number] Void Residual by ultrasound ([id number])
== END 2024-03-27 10:03 | disposition home or self-care (01) ==
PROVIDERS: PCP Family Medicine; Visit Provider Urology
DX: N39.46 Mixed incontinence (principal); N81.89 Other female genital prolapse; Z13.9 Encounter for screening, unspecified
CPT/HCPCS: 99204

== ENCOUNTER → 2024-03-27 08:44 | Outpatient (BNVA) | payer OTHER, SELFPAY | PROVIDERS: PCP Family Medicine; Visit Provider Urology | DX: N39.46 Mixed incontinence (principal); N81.89 Other female genital prolapse; R39.15 Urgency of urination | CPT/HCPCS: 51798; 81003; 99202 ==

== ENCOUNTER 2024-07-07 09:53 | Outpatient (REF) | payer OTHER, SELFPAY ==
--- NOTE | ~2024-07-07 | US_ITS ---
CLINICAL HISTORY: N39.46 - Mixed incontinence urgency US Renal Comparison: None Findings: Right kidney normal size and echotexture, 10.4 cm length. Left kidney normal size and echotexture, 9.9 cm length. No collecting system dilatation of either kidney. Normal color Doppler. Urinary bladder is unremarkable. Prevoid volume 560 mL. Postvoid volume 18 mL. Bilateral ureteral jets are visualized. IMPRESSION: 1. Normal kidneys. This document has been electronically signed by: Dani Malik MD on 07/08/2024 06:29:45
--- OUTSIDE RECORDS SUMMARY | 2024-07-07 11:33 | XMS_ITS | Clinical Summary ---
Author Organization [facility] Address [address] [place] [address] Care Team Providers Care Branch Retail Executive Name Role Phone Unavailable Primary Care Provider Unavailabl e Social History Tobacco Use Types Packs/Day Years Used Date Smoking Tobacco: Never Assessed Sex and Gender Information Value Date Recorded Sex Assigned at Not on file Gender Identity Not on file Sexual Orientation Not on file Plan of Treatment Health Maintenance Due Date Last Done Comments Hepatitis C Virus Screening 1965 HIV Screening 09/16/1976 DTaP/Tdap/Td Vaccines (1 - Tdap) 09/16/1982 Pneumococcal Vaccines 50+ (1 of 1 - PCV) 09/16/2013 Zoster (Shingles) Vaccine (1 of 2) 09/16/2013 COVID-19 Vaccine ( - 2023-2 5 season) 2023 RSV Vaccine 60 years and old er and Patients (1 - 1-dose 75+ series) 09/16/2038 Hepatitis B Vaccines Aged Out No long er eligible based on patient's age to complete this topic Pneumococcal Vaccine: Pediat bogdan (0-5 Years) and At-Risk Patients (6 to 49 Years) Aged Out No longer eligible b ased on patient's age to complete this topic
== END 2024-07-07 09:54 | disposition home or self-care (01) ==
LOC: HO.HMGCX 09:53
PROVIDERS: PCP Family Medicine; Visit Provider Urology
DX: N39.46 Mixed incontinence (principal)
CPT/HCPCS: 76770

== ENCOUNTER → 2024-07-07 09:55 | Outpatient (BNV) | payer OTHER, SELFPAY | PROVIDERS: PCP Family Medicine; Visit Provider Specialist | DX: N39.46 Mixed incontinence (principal) | CPT/HCPCS: 76770 ==

== ENCOUNTER 2024-08-28 13:22 | Outpatient (AMB) | payer OTHER, SELFPAY ==
--- OUTSIDE RECORDS SUMMARY | 2024-08-28 13:43 | XMS_ITS | Clinical Summary ---
Author Organization [facility] Address [address] [place] [address] Care Team Providers Care Collator Hand Name Role Phone Unavailable Primary Care Provider Unavailabl e Social History Tobacco Use Types Packs/Day Years Used Date Smoking Tobacco: Never Assessed Comments Unknown Sex and Gender Information Value Date Recorded Sex Assigned at Not on file Legal Sex Female 6:22 PM EST Gender Identity Not on file Sexual Orientation [...]
--- NOTE | 2024-08-28 13:53 | A.OFFVIS_ITS ---
Intake Visit Reasons: Followup/US Intake Note: Patient is present for a follow up/US Urology Medications: None Antibiotic Allergy: None Blood Thinner: None PVR: 9ml Pediatric Dermatologist Required: No Accompanied by: Self / Same As Patient Allergies oxycodone [OXYCODONE] Allergy (Mild, Verified 08/28/24 13:54) NAUSEA & VOMITING Most paonkillers Allergy (Unknown, Uncoded 03/27/24 09:18) VOmiting OxyContin Allergy (Unknown, Uncoded 03/27/24 09:18) vomit Medication List - Last Reconciled 08/28/24 by Elder Martinez MD albuterol sulfate 90 mcg/actuation 2 puffs inhalation Q4-6H PRN 30 days meloxicam 15 mg PO DAILY prednisone 40 mg (2 x 20 mg) PO DAILY solifenacin (Vesicare) 10 mg PO DAILY HPI Comments Details: 08/28/24-- 58-year-old female presenting with urinary urgency and incontinence initially evaluated in March 2024. Her symptoms were pronounced, leading to frequent incontinence, characterized by an urgent need to urinate often resulting in accidents. These episodes were notably distressing, affecting her daily routine and freedom of movement. She was prescribed Vesicare 10 mg daily for possible bladder spasms, leading to substantial improvement. Currently, she uses the medication approximately once every one to 2 weeks on an as-needed basis, as her symptoms have become infrequent and manageable. In June 2024, a renal bladder ultrasound was performed, which showed normal kidneys and an unremarkable bladder with efficient emptying (pre-void volume of 560 mL and post-void volume of 18 mL). There were no symptom triggers related to lifestyle factors like diet or fluid intake identified during our conversation. The patient did not report any instances of pain or nocturia. The condition largely remains asymptomatic with current management. Results - Renal bladder ultrasound (07/07/24): Normal kidneys, unremarkable urinary bladder, pre-void volume 560 mL, post-void volume 18 mL [facility] Medical History Family history of premature coronary artery disease Surgical History History of cholecystectomy History of partial hysterectomy Family History Father No problems noted. Mother No problems noted. Brother CVD (cardiovascular disease) Daughter Grand mal seizure Family/Other Multiple sclerosis Social History Household Members: None Housing: House Alcohol intake: current Alcohol intake frequency: holidays/special occasions only Patient Tobacco Use Status: Never used Tobacco e-Cigarette/Vaping Use: Never Used service: No Current occupational status: employed Current occupation: Nurse Current occupational exposures/hazards: No Cognitive needs: No Hearing needs: No Vision needs: No Review of Systems Const All systems reviewed & are unremarkable except as noted in HPI and below Reports no additional complaints Eyes Reports no additional complaints ENT Reports no additional complaints Card Reports no additional complaints Resp Reports no additional complaints GI Reports no additional complaints Reports as per HPI Musc Reports no additional complaints Skin/Breast Reports system reviewed and no additional complaints, except as documented Neuro Reports no additional complaints Psych Reports no additional complaints Endo Reports no additional complaints Akshat/Lymph Reports no additional complaints Aller/Immun Reports no additional complaints Results Reviewed Results Reviewed: Date of Service: 07/07/24 CLINICAL HISTORY: N39.46 - Mixed incontinence urgency US Renal Comparison: None Findings: Right kidney normal size and echotexture, 10.4 cm length. Left kidney normal size and echotexture, 9.9 cm length. No collecting system dilatation of either kidney. Normal color Doppler. Urinary bladder is unremarkable. Prevoid volume 560 mL. Postvoid volume 18 mL. Bilateral ureteral jets are visualized. IMPRESSION: 1. Normal kidneys. Assessment & Plan Assessment & Plan (1) OAB (overactive bladder): Code(s): N32.81 - Overactive bladder Category: Medical (2) Urinary incontinence: Code(s): R32 - Unspecified urinary incontinence Category: Medical Qualifiers: Urinary Incontinence type: mixed stress and urge incontinence Qualified Code(s): N39.46 - Mixed incontinence Plan Plan - Continue taking Vesicare 10 mg as needed for urinary urgency - FU in one year - Use the bathroom regularly to avoid urgency symptoms, Timed voiding q2-3 hrs - Avoid caffeine or alcohol which may worsen symptoms Medications: Refilled solifenacin (Vesicare) 10 mg PO DAILY 30 tabs 5RF Patient Instructions: The patient had an opportunity to ask questions regarding treatment plan. The patient expressed understanding and agreement with the above treatment plan. The patient is aware they should contact our office by phone for worsening of their current condition or the appearance of new symptoms. Compliance is encouraged with any medications and followup testing that is ordered. It is a privilege to be allowed the opportunity to participate in the urologic care of your patient. If you have any questions or concerns regarding treatment for the above conditions please do not hesitate to contact me. The office telephone contact is [phone]. This note is constructed in part using voice recognition software. While every effort has been made to ensure accuracy stove mechanic errors may have been included. Yours sincerely, Elder Martinez MD Scribe Plan - Not visible on output: Patient was informed and verbally consented to the use of an ambient scribe for clinic note documentation during this visit. Coding Level of Care Code Est Pt Level 3 (67968) Diagnoses OAB (overactive bladder) N32.81 Mixed stress and urge urinary incontinence N39.46 Urinary Incontinence type: mixed stress and urge incontinence
== END 2024-08-28 14:43 | disposition home or self-care (01) ==
LOC: HO.HUSH 13:22
PROVIDERS: PCP Family Medicine; Visit Provider Urology
DX: N32.81 Overactive bladder (principal); N39.46 Mixed incontinence; Z13.9 Encounter for screening, unspecified
CPT/HCPCS: 99213

== ENCOUNTER → 2024-08-28 13:22 | Outpatient (BNVA) | payer OTHER, SELFPAY | PROVIDERS: PCP Family Medicine; Visit Provider Urology | DX: N32.81 Overactive bladder (principal); N39.46 Mixed incontinence | CPT/HCPCS: 51798; 81003; 99212 ==

== ENCOUNTER 2024-12-12 14:54 | Outpatient (AMB) | payer OTHER, SELFPAY ==
--- NOTE | 2024-12-12 15:01 | A.OFFPC_ITS ---
Vital Signs 12/12/24 15:03 Height 5 ft 1 in Weight 208 lb 2 oz BMI 39.3 BP 126/72 Blood Pressure Location Lt brachial Position Sitting Respiration 12 Pulse 75 Pulse Source Pulse Oximeter Temp 97.5 F Temp Source Oral Pulse Oximetry (%) 96 Oxygen Delivery Method Room Air Intake Visit Reasons: Physical / Dr. Falcon's pt. Intake Note: CPE. Cutter Grinder Required: No Allergies oxycodone (OXYCODONE) Allergy (Mild, Verified 12/12/24 15:15) NAUSEA & VOMITING Most paonkillers Allergy (Unknown, Uncoded 12/12/24 15:01) VOmiting OxyContin Allergy (Unknown, Uncoded 12/12/24 15:01) vomit Medication List - Last Reconciled 12/12/24 by JOYCE Willoughby- albuterol sulfate 90 mcg/actuation 2 puffs inhalation Q4-6H PRN 30 days meloxicam 15 mg PO DAILY ondansetron HCl 4 mg PO Q8H PRN 3 days solifenacin (Vesicare) 10 mg PO DAILY Tobacco use date assessed: 12/12/24 Dental Screening Dental Screen Date: 12/12/24 Did you have a dental visit in the last 12 months?: Yes Did you have a dental problem in the last 6 months where you did not have access to dental care?: No Was dental information given to patient?: Patient has dentist HPI HPI Comments History of Present Illness Details 59 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 - History of overactive bladder managed with Vesicare. - Episodic nausea occurring once a month , previously evaluated by gastroenterology. Uses prn zofran. - Wheezing, uses albuterol PRN, needs re fill. - Hypogeusia for five years, with possib le relation to past COVID-19 or vaccination. - Periodic cramps in body occurring thro ughout the day. Social History - Has a daughter who is a dietitian; att empts dietary changes to improve health. - Recently traveled to [place] - Patient enjoys traveling and has plann ed future travel e. Health Maintenance - Denied tetanus booster; refused unless experiencing a problem. - Prior mammogram last in June 2023; rena hernandez to schedule a new one, overdue for annual examination. - Last colonoscopy in 2018. - Previous shingles and pneumococcal vac cinations discussed, with pharmacy consultation advised. Review of Systems - Constitutional: Reports fatigue, denie s fever. - Respiratory: Reports wheezing. - Gastrointestinal: Reports recurrent na usea, denies abdominal pain. - Neurological: Reports episodes of dizz iness, occasional heart palpitations. - Genitourinary: Reports urinary inconti nence. - Dermatologic: Denies recent skin antony es or rashes. - Musculoskeletal: Reports muscle cramps . Physical Exam General: Well developed, well nourished, in no acute distress. Appears stated age. Head: Normocephalic, atraumatic. Eyes: Pupils are equal, round and reactive to light and accommodation. Conjunctivae are clear. Vision grossly normal. Ears: TMs clear AU, EACS WNL Nose: Patent, without discharge. Neck: Supple, no adenopathy or thyromegaly. Patient reports a lump that has been previously imaged and deemed non-concerning. Breast: Edu on SBE Lungs: Clear to auscultation bilaterally. No rales, rhonchi or wheeze noted. Good air flow in all alonzo. Heart: Regular rate and rhythm. No murmurs, click, rubs or gallops are noted. Reports occasional heart palpitations. Abdomen: Bowel sounds present in all quadrants. The abdomen is soft, nontender, with no masses or organomegaly noted. No hernias are noted. : Deferred. 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 Pulses: Peripheral pulses are equal and palpable bilaterally. Extremities: No clubbing, cyanosis nor edema is noted. Neurologic: Gait and station normal. Cranial Nerves 2-12 intact. Motor strength grossly symmetrical and intact. No sensory loss. Balance normal. Skin: No rashes, ulcers, or lesions noted. Turgor is good. Skin color is good. Hair and nails are without abnormalities. Psych: Normal eye contact, affect and mood appropriate, and normal interactions. Patient is alert and appropriate to context. Results Pending Discussion Notes I discussed with the patient the management of her recurring nausea, suggesting the trial of both omeprazole and Pepcid for a six-week period each (one at a time), to see if there is a reduction in episodes. We talked about her prior tests and specialists seen, including gastroenterology, without a diagnosis. I brought up the possibility of silent reflux and suggested trying dietary magnesium for cramps, highlighting the caution for potential GI upset. Could also use yellow mustard. We discussed the importance of health maintenance, including scheduling her mammogram and considering shingles and pneumococcal vaccinations. I advised her on refill management of shah medications like albuterol and Zofran. The patient is aware of the pharmacies' roles in certain decisions, particularly for vaccinations, and has declined a tetanus booster at this time. Patient was given time to ask questions. All questions were answered to their satisfaction. Assessment and Plan 1. Overactive bladder with urinary incon tinence - Continue Vesicare, care w urology. 2. Recurrent episodic nausea - Trial omeprazole or Pepcid for six wee ks each. - Refill Zofran PRN. 3. Loss of taste - Possibly post-COVID or vaccine; no whitney nges or interventions. 4. Wheezing - Refill albuterol, monitor usage. Patient Instructions - Use Vesicare as directed for urinary i ncontinence. - Start either omeprazole or Pepcid OTC for nausea; try for six weeks and switch if needed. - Use Zofran as needed for nausea. - Refill albuterol as needed for wheezin g. - Schedule your mammogram and colonoscop y. - Try yellow mustard or magnesium for cr amps, if necessary. - Follow a healthy diet; consult with terri lanza, if available. - Contact us through the portal for any new concerns or acute issues. - RTO 1 year CPE, sooner PRN Consent Patient was informed and verbally consented to the use of an ambient scribe for clinic note documentation during this visit. An additional 20 minutes was spent addressing the problem(s) noted at todays visit. This includes time spent before the visit reviewing the chart, time spent during the visit, and time spent after the visit on documentation reviewing laboratory results, diagnostic imaging, medications, performing a medically necessary evaluation, counseling on diagnoses, care coordination, ordering appropriate tests, ordering appropriate medications, review of tests performed by other providers, reporting test results with the patient, communication with other healthcare providers. [facility] Medical History (Updated 12/12/24 @ 16:26 by Sola Clements, [facility]) Family history of premature coronary artery disease Surgical History (Updated 12/12/24 @ 07:05 by Sola Clements, [facility]) History of cholecystectomy History of colonoscopy (~2018) History of partial hysterectomy Family History Father No problems noted. Mother No problems noted. Brother CVD (cardiovascular disease) Daughter Grand mal seizure Family/Other Multiple sclerosis Social History Household Members: None Housing: House Alcohol intake: current Alcohol intake frequency: holidays/special occasions only Patient Tobacco Use Status: Never used Tobacco e-Cigarette/Vaping Use: Never Used service: No Current occupational status: employed Current occupation: Nurse Current occupational exposures/hazards: No Cognitive needs: No Hearing needs: No Vision needs: No Questionnaire PHQ-9 Over the last 2 weeks, how often have you been bothered by any of the following problems? 1. Little interest or pleasure in doing things: not at all 2. Feeling down, depressed, or hopeless: not at all 3. Trouble falling or staying asleep, or sleeping too much: several days 4. Feeling tired or having little energy: not at all 5. Poor appetite or overeating: not at all 6. Feeling bad about yourself - or that you are a failure or have let yourself or your family down: not at all 7. Trouble concentrating on things, such as reading the newspaper or watching television: not at all 8. Moving or speaking so slowly that other people could have noticed. Or the opposite - being so fidgety or restless that you have been moving around a lot more than usual: not at all 9. Thoughts that you would be better off or of hurting yourself in some way: not at all Total score: 1 Depression Screening Interpretation: Negative Depression Screening Done: Yes 98282 - PHQ-9 Billing: Yes Source: Developed by Drs. Allen Pham, Ny Drake, Mitul Heredia and colleagues, with an educational farheen from [employer]. Thrive Questionnaire Date Thrive assessed: 12/12/24 I am a: Patient What is your living situation today?: I have a steady place to live Within the past 12 months, did the food you bought not last and you didn't have the money to get more?: Never true Within the past 12 months, did you worry whether your food would run out before you got money to buy more?: Never true Do you have trouble paying for medicines?: No Do you have trouble getting transportation to medical appointments?: Yes Do you have trouble paying your heating and electricity bill?: No Do you have trouble taking care of your child, family member or friend?: No Do you have trouble with day-to-day activities such as bathing, preparing meals, shopping, managing finances, etc.?: No Are you currently unemployed and looking for a job?: No Are you interested in more education?: No Please select the resources that you would like help with: None Currently or been in a relationship where the following occur: No concerns reported THRIVE Score: 1 AUDIT C Alcohol Use Questionnaire (AUDIT-C) 1. How often do you have a drink containing alcohol?: Monthly or less 2. How many drinks containing alcohol do you have on a typical day when you are drinking?: 1 or 2 3. How often do you have six or more drinks on one occasion?: Never Total Score: 1 Score Reviewed/Action Taken: Yes RICKY-7 AMB Questionnaire RICKY-7 Date RICKY - 7 assessed: 12/12/24 Feeling nervous, anxious, or on edge: 0 = Not at all Not being able to stop or control worryin = Not at all Worrying too much about different things: 0 = Not at all Trouble relaxin = Not at all Being so restless that it is hard to sit still: 0 = Not at all Becoming easily annoyed or irritable: 0 = Not at all Feeling afraid as if something awful might happen: 0 = Not at all Total RICKY-7 score (0-4 normal; 5-9 mild; 10-14 moderate; 15-21 severe): 0 Source: Developed by Drs. Allen Pham, Ny Drake, Mitul Heredia and colleagues, with an educational farheen from [employer] RICKY-7 Assessment Billing RICKY-7 Assessment Tool: RICKY-7 Assessment 97848 Physical exam (Primary Care) Vital Signs: Last Vital Signs Temp 97.5 F 12/12/24 15:03 Pulse 75 12/12/24 15:03 Resp 12 12/12/24 15:03 BP 126/72 12/12/24 15:03 Pulse Ox 96 12/12/24 15:03 Oxygen Delivery Method Room Air 12/12/24 15:03 BMI result Body Mass Index 39.3 BMI Assessment/Plan discussion: High BMI High, discussed plan: lifestyle Tobacco/Smoking Status: Tobacco use Status Tobacco use date assessed 12/12/24 12/12/24 15:05 Patient Tobacco Use Status Never used Tobacco 12/12/24 15:05 e-Cigarette/Vaping Use Never Used 12/12/24 15:05 PHQ-9: PHQ-9 Score PHQ-9: Total score 1 12/12/24 15:15 Depression Screening Interpretation: Negative Thrive Assessment: Date of Thrive Assessment Date Thrive assessed 12/12/24 12/12/24 15:05 Currently or been in a relationship where the following occur: No concerns reported Coding Level of Care Code Est Pt Level 3 (30015) Est Pt Prev Care 40-64y(46979) Diagnoses Encounter for general adult medical examination without abnormal findings Z00.00 Obesity (BMI 30-39.9) E66.9 Tetanus, diphtheria, and acellular pertussis (Tdap) vaccination declined Z28.21 Palpitations R00.2 Anosmia R43.0 Laboratory exam ordered as part of routine general medical examination Z00.00 Mixed stress and urge urinary incontinence N39.46 Urinary Incontinence type: mixed stress and urge incontinence OAB (overactive bladder) N32.81 Nausea and vomiting, unspecified vomiting type R11.2 Vomiting type: unspecified Muscle cramp R25.2 Additional Codes RICKY-7 Assessment Billing - RICKY-7 Assessment Tool: RICKY-7 Assessment 99726 ([id number]) PHQ-9 - 66483 - PHQ-9 Billing: Yes ([id number]) Assessment & Plan Assessment & Plan (1) Encounter for general adult medical examination without abnormal findings: Onset Date: ~12/12/24 Code(s): Z00.00 - Encounter for general adult medical examination without abnormal findings Category: Medical (2) Obesity (BMI 30-39.9): Code(s): E66.9 - Obesity, unspecified Category: Medical (3) Tetanus, diphtheria, and acellular pertussis (Tdap) vaccination declined: Code(s): Z28.21 - Immunization not carried out because of patient refusal Category: Medical (4) Palpitations: Code(s): R00.2 - Palpitations Category: Medical (5) Anosmia: Code(s): R43.0 - Anosmia Category: Medical (6) Laboratory exam ordered as part of routine general medical examination: Code(s): Z00.00 - Encounter for general adult medical examination without abnormal findings Category: Medical (7) Urinary incontinence: Code(s): R32 - Unspecified urinary incontinence Category: Medical Qualifiers: Urinary Incontinence type: mixed stress and urge incontinence Qualified Code(s): N39.46 - Mixed incontinence (8) OAB (overactive bladder): Code(s): N32.81 - Overactive bladder Category: Medical (9) Nausea & vomiting: Code(s): R11.2 - Nausea with vomiting, unspecified Category: Medical Qualifiers: Vomiting type: unspecified Qualified Code(s): R11.2 - Nausea with vomiting, unspecified (10) Muscle cramp: Code(s): R25.2 - Cramp and spasm Category: Medical Plan . Orders: Orders Complete Blood Count no Diff Today Z00.00 - Encounter for general adult medical examination without abnormal findings Comprehensive Met. Panel Today Z00.00 - Encounter for general adult medical examination without abnormal findings Hemoglobin A1c Today Z00.00 - Encounter for general adult medical examination without abnormal findings TSH reflex Free T4 Today Z00.00 - Encounter for general adult medical examination without abnormal findings Lipid Panel Today Z00.00 - Encounter for general adult medical examination without abnormal findings Microalbumin, Random (w Creat) Today Z00.00 - Encounter for general adult medical examination without abnormal findings Vitamin B12 and Folate Today Z00.00 - Encounter for general adult medical examination without abnormal findings Vitamin D 25-OH Total Today Z00.00 - Encounter for general adult medical examination without abnormal findings Medications: Refilled albuterol sulfate 90 mcg/actuation 2 puffs inhalation Q4-6H PRN 6.7 grams 2RF shortness of breath or wheezing 30 days meloxicam 15 mg PO DAILY 90 tabs 0RF solifenacin (Vesicare) 10 mg PO DAILY 90 tabs 2RF ondansetron HCl 4 mg PO Q8H PRN 15 tabs 0RF nausea and vomiting 3 days Patient Instructions: Health screenings for women You should visit your health care provider from time to time, even if you are healthy. The purpose of these visits is to: Screen for medical issues Assess your risk for future medical problems Encourage a healthy lifestyle Update vaccinations and other preventive care services Help you get to know your provider in case of an illness Information Even if you feel fine, you should still see your provider for regular checkups. These visits can help you avoid problems in the future. For example, the only way to find out if you have high blood pressure is to have it checked regularly. High blood sugar and high cholesterol levels also may not have any symptoms in the early stages. A simple blood test can check for these conditions. There are specific times when you should see your provider or receive specific health screenings. The [place] Preventive Services Task Force publishes a list of recommended screenings. Below are screening guidelines for women ages 18 to 39. BLOOD PRESSURE SCREENING Your blood pressure should be checked at least once every 3 to 5 years if: Your blood pressure is in the normal range (top number less than 120 mm Hg and bottom number less than 80 mm Hg) You don't have risk factors for high blood pressure Ask your provider if you need your blood pressure checked more often if: The top number is 120 to 129 mm Hg or the bottom number is 70 to 79 mm Hg You have diabetes, heart disease, kidney problems, are overweight, or have certain other health conditions You have a first-degree relative with high blood pressure You are Black You had high blood pressure during a If the top number is 130 mm Hg or greater or the bottom number is 80 mm Hg or greater, this is considered stage 1 hypertension. Schedule an appointment with your provider to learn how you can reduce your blood pressure. Watch for blood pressure screenings in your area. Ask your provider if you can stop in to have your blood pressure checked. BREAST CANCER SCREENING Experts do not agree about the benefits of breast self-exams in finding breast cancer or saving lives. Talk to your provider about what is best for you. A screening mammogram is not recommended for most women under age 40. Your provider may discuss and recommend mammograms, MRI scans, or ultrasounds if you have an increased risk for breast cancer, such as: A mother or sister who had breast cancer at a young age (most often starting screening earlier than the age the close relative was diagnosed) You carry a high-risk genetic marker CERVICAL CANCER SCREENING Cervical cancer screening should start at age 21 years unless your provider ad vises otherwise. After the first test: Women ages 21 through 29 should have a Pap test every 3 years. Exoprts do not agree on whether HPV testing is recommended for this age group. Women ages 30 through 65 should be screened with either a Pap test every 3 years or the HPV test every 5 years or both tests every 5 years (called cotesting ). Women who have been treated for precancer (cervical dysplasia) should continue to have Pap tests for 20 years after treatment or until age 65, whichever is longer. If you have had your uterus and cervix removed (total hysterectomy), and you have not been diagnosed with cervical cancer or precancer (high grade cervical neoplasia), you do not need cervical cancer screening. CHOLESTEROL SCREENING Cholesterol screening should begin at: Age 45 for women with no known risk factors for coronary heart disease Age 20 for women with known risk factors for coronary heart disease Repeat cholesterol screening should take place: Every 5 years for women with normal cholesterol levels More often if changes occur in lifestyle (including weight gain and diet) More often if you have diabetes, heart disease, kidney problems, or certain other conditions DIABETES SCREENING You should be screened for diabetes starting at age 35 and then repeated every 3 years if you have no risk factors for diabetes. Screening may need to start earlier and be repeated more often if you have other risk factors for diabetes, such as: You have a first degree relative with diabetes. You are overweight or have obesity. You have high blood pressure, prediabetes, or a history of heart disease. Screening for diabetes should be done if you are planning to become and you are overweight and have other risk factors such as high blood pressure. DENTAL EXAM Go to the dentist once or twice every year for an exam and cleaning. Your dentist will evaluate if you need more frequent visits. EYE EXAM Have an eye exam every 5 to 10 years before age 40. If you have vision problems, have an eye exam every 2 years or more often if recommended by your provider. You should have an eye exam that includes an examination of your retina (back of your eye) at least every year if you have diabetes. IMMUNIZATIONS Commonly needed vaccines include: Flu shot: get one every year. COVID-19 vaccine: ask your provider what is best for you. Tetanus-diphtheria and acellular pertussis (Tdap) vaccine: have one at or after age 19 as one of your tetanus-diphtheria vaccines if you did not receive it as an adolescent. Tetanus-diphtheria: have a booster (or Tdap) every 10 years. Varicella vaccine: receive 2 doses if you never had chickenpox or the varicella vaccine. Hepatitis B vaccine: receive 2, 3, or 4 doses, depending on your exact circumstances. Measles, mumps, and rubella (MMR) vaccine: receive 1 to 2 doses if you are not already immune to MMR. Your provider can tell you if you are immune. Ask your provider about the human papillomavirus (HPV) vaccine if: You have not received the HPV vaccine in the past You have not completed the full vaccine series (you should catch up on this shot) Ask your provider if you should receive other immunizations if you have certain health problems that increase your risk for some diseases such as pneumonia. INFECTIOUS DISEASE SCREENING Women who are sexually active should be screened for chlamydia and gonorrhea up until age 25. Women 25 years and older should be screened for chlamydia and gonorrhea if at high risk. Screening for hepatitis C: All adults ages 18 to 79 should get a one-time test for hepatitis C. people should be screened at every . Screening for human immunodeficiency virus (HIV): All people ages 15 to 65 should get a one-time test for HIV. Depending on your lifestyle and medical history, you may also need to be screened for infections such as syphilis and HIV, as well as other infections. PHYSICAL EXAM All adults should visit their provider from time to time, even if they are healt hy. The purpose of these visits is to: Screen for disease Assess your risk of future medical problems Encourage a healthy lifestyle Update your vaccinations and other preventive care services Maintain a relationship with a provider in case of an illness Your height, weight, and BMI should be checked at every exam. During your exam, your provider may ask you about: Depression and anxiety Diet and exercise Alcohol and tobacco use Safety issues, such as using seat belts, smoke detectors, and intimate partner violence Your medicines and risk for interactions SKIN SELF-EXAM Your provider may check your skin for signs of skin cancer, especially if you're at high risk, such as if you: Have had skin cancer before Have close relatives with skin cancer Have a weakened immune system OTHER SCREENING Talk with your provider about colon cancer screening if you have a strong family history of colon cancer or polyps, or if you have had inflammatory bowel disease or polyps yourself. Routine bone density screening of women under 40 is not recommended.
[2024-12-12 15:03] VITALS: BP 126/72; PULSE 75; RESP 12; TEMP 36.4; O2SAT 96; BMI 39.3
--- OUTSIDE RECORDS SUMMARY | 2024-12-12 15:49 | XMS_ITS | Clinical Summary ---
Author Organization [facility] Address [address] [place] [address] Care Team Providers Care Fishery Biologist Name Role Phone Unavailable Primary Care Provider [...]
--- OUTSIDE RECORDS SUMMARY | 2024-12-12 15:49 | XMS_ITS | Clinical Summary ---
Author Organization [facility] Address [address] [place] [address] Phone Care Team Providers Care Shot Lighter Name Role Phone Karl Falcon MD Primary Care Provider Allergies Active Allergy Reactions Criticality Noted Date Comments Oxycodone Nausea and/or Vomiting 02/23/2022 Medications buPROPion (WELLBUTRIN XL) 150 MG ER 24 hr tablet Take 150 mg by mouth every morning. 2 Active clonazePAM (KLONOPIN) 2 MG tablet Take 2 mg by mouth 2 (two) times a day as needed. 2 Active zolpidem (AMBIEN) 10 mg tablet Take 10 mg by mouth nightly at bedtime as needed. 2 Active ondansetron (ZOFRAN-ODT) 8 MG disintegrating tablet DISSOLVE 1 TABLET ON THE TONGUE EVERY 8 HOURS FOR 5 DAYS NEEDED FOR NAUSEA OR VOMITING 3 Active meloxicam (MOBIC) 15 MG tablet Take 1 tablet by mouth daily as needed. 3 Active diclofenac sodium (VOLTAREN) 1 % Gel 3 Active Active Problems Problem Noted Date Diagnosed Date Diaphoresis 02/23/2022 Assessment & Plan (09/07/2022 12:53 PM EDT): I did not find an endocrine etiology for diaphoresis. Her glucose levels was elevated but then she did receive dextrose prior to the study I believe in error. So at this point I will not work this up further and the patient can follow-up with primary care physician. Assessment & Plan (02/23/2022 1:41 PM EST): This is a patient with diaphoresis for 2 years. It does not appear to be associated with menopause. She did have slight hot flashes in the past but had been fine free of hot flashes for 10 years prior. She does have diarrhea but this morning due to cholecystectomy. And nevertheless I will check 24-hour urine 5-HIAA and chromogranin A. She does not know if she becomes flushed. She does have tachycardia and diaphoresis no headaches and does not have hypertension I will check plasma metanephrines for possible pheochromocytoma. She is not aware of family history of papillary thyroid carcinoma will check calcitonin level for medullary thyroid carcinoma. She has not noticed hypoglycemia but I will check cortisol and fasting glucose level for adrenal insufficiency. She has not noticed any enlargement of the hands, head or feet. Nevertheless I will check IGF-I for evaluation of acromegaly. I will check tryptase level for evaluation of her mastocytosis. The patient should do lab work fasting, in the morning. Family History Medical History Relation Comments Dementia Father COPD Mother Relation Status Comments Father Alive Mother Social History Tobacco Use Types Packs/Day Years Used Date Smoking Tobacco: Never Passive Smoke Exposure: Past Smokeless Tobacco: Never Tobacco Cessation:Counseling Given: Not Answered Alcohol Use Standard Drinks/Week Comments Not Currently 0 (1 standard drink = 0.6 oz pur e alcohol) social Education Answer Date Recorded Are you interested in more education? Not on ryann e 08/14/2022 Are you concerned about learning? Not on file 08/14/2022 No 08/14/2022 No 08/14/2022 Digital Access Answer Date Recorded No 09/15/2022 No 09/15/2022 Reliable internet access at home? Not on file 09/15/2022 Device with a working camera? Not on file Comments Unknown Sex and Gender Information Value Date Recorded Sex Assigned at Not on file Legal Sex Female 3:47 PM EST Gender Identity Not on file Sexual Orientation Not on file Last Filed Vital Signs Vital Sign Reading Time Taken Comments Blood Pressure 118/64 09/07/2022 12:33 PM EDT Pulse 66 09/07/2022 12:33 PM EDT Temperature - - Respiratory Rate - - Oxygen Saturation 96% 09/07/2022 12:33 PM EDT Inhaled Oxygen Concentration - - Weight 91.3 kg (201 lb 3.2 oz) 02/23/2022 1:05 P M EST Height 152 cm (4' 11.84 ) 09/07/2022 12:33 PM ED T Body Mass Index 39.5 02/23/2022 1:05 PM EST Plan of Treatment Health Maintenance Due Date Last Done Comments Adult Td,Tdap Booster 1963 DEPRESSION SCREENING 1975 HEPATITIS C SCREENING 09/16/1981 HIV ONE-TIME SCREENING (18-6 5 YEARS) 09/16/1981 PAP SMEAR 09/16/1984 MAMMOGRAM 2003 COLOGUARD 09/16/2008 COLONOSCOPY 09/16/2008 COLORECTAL CANCER SCREENING 09/16/2008 FIT TEST 09/16/2008 FOBT 09/16/2008 SIGMOIDOSCOPY 09/16/2008 VIRTUAL COLONOSCOPY 09/16/2008 PNEUMOCOCCAL VACCINES (50+ years) (1 of 1 - PCV) 09/16/2013 ZOSTER VACCINES (1 of 2) 09/16/2013 LIPID PANEL 12/06/2023 12/05/2018 COVID-19 VACCINE (1 - 2023-2 5 season) 2023 SCREENING FOR DIABETES 09/02/2025 3, 12/05/2018 RSV VACCINE (1 - 1-dose 75+ series) 09/16/2038 SMOKING STATUS SCREENING (On ce After 26 Yrs) Completed 02/23/2022 HEPATITIS A VACCINES Aged Out No long er eligible based on patient's age to complete this topic HIB VACCINES Aged Out No longer eligi ble based on patient's age to complete this topic MENINGOCOCCAL VACCINES (ACWY) Aged Out No longer eligible based on patient's age to complete this topic MENINGOCOCCAL VACCINES (B) Aged Out N o longer eligible based on patient's age to complete this topic Medical Devices Not on file Insurance [facility] PPO BLUE CROSS OUT OF STATE PPO BLUE CROSS OUT OF STATE PPO BLUE CROSS OUT OF STATE PPO BLUE CROSS OUT OF STATE PPO BLUE CROSS OUT OF STATE PPO BLUE CROSS OUT OF STATE PPO OUT OF STATE PPO OUT [facility] PPO Care Teams Shot Lighter Relationship Specialty Start Date End Date Karl Falcon MD [address] [place] [address] PCP - General Family Medicine 02/23/22 Additional Source Comments The information contained in this document represents components of the legal health record. It is not the complete legal health record.[facility]
== END 2024-12-12 15:47 | disposition home or self-care (01) ==
LOC: HO.HMCFM 14:55
PROVIDERS: PCP Family Medicine; Visit Provider Nurse Practitioner Family
DX: Z00.00 Encounter for general adult medical examination without abnormal findings (principal); R00.2 Palpitations; E66.9 Obesity, unspecified; Z68.39 Body mass index [BMI] 39.0-39.9, adult; Z28.21 Immunization not carried out because of patient refusal; R43.0 Anosmia; N39.46 Mixed incontinence; N32.81 Overactive bladder; R11.2 Nausea with vomiting, unspecified; R25.2 Cramp and spasm

== ENCOUNTER 2024-12-12 14:54 | Outpatient (REF) | payer OTHER, SELFPAY ==
[2024-12-12 18:24] LABS: Hematocrit 40.0 % (37.0-47.0); Hemoglobin 13.4 g/dl (12.0-16.0); Mean Corpuscular HGB Conc 33.5 g/dl (31.0-35.0); Mean Corpuscular Hemoglobin 33.3 pg (27.0-33.0); Mean Corpuscular Volume 99.3 fL (80.0-98.0); NRBC Abs Auto 0.000 X10*3/uL (0.0-0.012); NRBC Pct Auto 0.0 /100WBC (0.0-0.2); Platelet Count 286 X10*3/uL (160-400); Red Blood Count 4.03 X10*6/uL (4.20-5.50); White Blood Count 7.2 X10*3/uL (4.8-10.8)
[2024-12-12 19:19] LABS: Alanine Aminotransferase 13 U/L (0-31); Albumin Level 4.7 g/dL (3.5-5.0); Alkaline Phosphatase 75 U/L (39-117); Anion Gap 12 (12-20); Aspartate Amino Transferase 19 U/L (5-31); Blood Urea Nitrogen 15 mg/dL (9-16); Calcium 9.4 mg/dL (8.4-10.2); Carbon Dioxide 26 mmol/L (22-29); Chloride 106 mmol/L (96-108); Cholesterol 186 mg/dL (<200); Estimated Glomerular Filt Rate > 60; HDL Cholesterol 59 mg/dL (>40); Potassium 3.7 mmol/L (3.3-5.1); Sodium 140 mmol/L (135-145); Total Protein 7.2 g/dL (6.5-8.0); Triglycerides 149 mg/dL (<150)
[2024-12-12 19:46] LABS: Folate 8.3 ng/mL (> or = 4.0); Vitamin B12 164 pg/mL (200-900)
== END 2024-12-12 14:55 | disposition home or self-care (01) ==
LOC: HO.WFDLDS 14:54
PROVIDERS: PCP Family Medicine; Visit Provider Nurse Practitioner Family
DX: Z00.00 Encounter for general adult medical examination without abnormal findings (principal); Z28.21 Immunization not carried out because of patient refusal; E66.9 Obesity, unspecified; R00.2 Palpitations; R43.0 Anosmia; N39.46 Mixed incontinence; N32.81 Overactive bladder; R11.2 Nausea with vomiting, unspecified; R25.2 Cramp and spasm; Z79.899 Other long term (current) drug therapy; Z68.39 Body mass index [BMI] 39.0-39.9, adult
CPT/HCPCS: 36415; 80053; 80061; 82043; 82306; 82570; 82607; 82746; 83036; 84443; 85027; 96127; 99212; 99396